=== PATIENT | male | born 1995 ===

== ENCOUNTER 2016-06-05 21:17 | Inpatient (IN) | payer MEDICAID ==
[2016-06-05 21:20] VITALS: BMI 38.4
[2016-06-05] MEDS ORDERED: Piperacillin/Tazobact 3.375 gm 100 ML IV STA (21:41)
--- NOTE | 2016-06-05 21:44 | ED PDOC ---
Arrival/HPI - General Chief Complaint: Dental Pain Time Seen by Provider: 06/05/16 21:35 Historian: Patient - History of Present Illness Narrative History of Present Illness (Text): 06/05/16 21:40 Vdial Vieyra is a 20 year old male, with a history of asthma and hypertension, presents to the emergency department complaining of worsening left sided facial swelling since today morning. Patient went to the dentist in the morning who performed a procedure on left upper molar and started patient on Augmentin. States he took the antibiotics at 2 pm but reports that symptoms are worsening. Denies any fever, chills, headache, dizziness, pain to the area, nausea, vomiting, diarrhea, or any other complaints at this time Time/Duration: Other (since today morning) Symptom Onset: Gradual Symptom Course: Worsening Severity Level: Moderate Activities at Onset: Light Context: Home Past Medical History - Provider Review Nursing Documentation Reviewed: Yes - Infectious Disease Hx of Infectious Diseases: None - Tetanus Immunization Tetanus Immunization: Unknown - Cardiac Hx Hypertension: Yes - Pulmonary Hx Respiratory Disorders: Yes Hx Asthma: Yes - Neurological Hx Neurological Disorder: No - HEENT Hx HEENT Disorder: No - Renal Hx Renal Disorder: No - Endocrine/Metabolic Hx Endocrine Disorders: No - Hematological/Oncological Hx Blood Disorders: No - Integumentary Hx Dermatological Disorder: No - Musculoskeletal/Rheumatological Hx Musculoskeletal Disorders: No - Gastrointestinal Hx Gastrointestinal Disorders: No - Genitourinary/Gynecological Hx Genitourinary Disorders: No - Psychiatric Hx Psychophysiologic Disorder: No Hx Substance Use: No - Past Surgical History Past Surgical History: No Previous - Anesthesia Hx Anesthesia: No - Suicidal Assessment Feels Threatened In Home Enviroment: No Family/Social History - Physician Review Nursing Documentation Reviewed: Yes Family/Social History: No Known Family HX Smoking Status: Never Smoked Hx Alcohol Use: No Hx Substance Use: No Allergies/Home Meds Allergies/Adverse Reactions: Allergies No Known Allergies Allergy (Verified 01/05/16 10:57) Home Medications: Home Meds Medication Instructions Recorded Confirmed No Known Home Med 06/06/16 06/06/16 Review of Systems - Physician Review All systems were reviewed & negative as marked: Yes - Review of Systems Constitutional: Normal. absent: Fatigue, Fevers ENT: Other (left facial swelling) Respiratory: Normal. absent: SOB, Cough Cardiovascular: Normal Gastrointestinal: Normal. absent: Abdominal Pain, Diarrhea, Nausea, Vomiting Neurological: Normal. absent: Headache, Dizziness Psychiatric: Normal Physical Exam Vital Signs Reviewed: Yes Vital Signs Temp Pulse Resp BP Pulse Ox 06/06/16 00:42 98.6 F 96 H 18 157/87 H 99 06/05/16 21:30 98.5 F 90 14 168/113 H 99 Temperature: Afebrile Blood Pressure: Hypertensive Pulse: Regular Respiratory Rate: Normal Appearance: Positive for: Well-Appearing, Non-Toxic, Comfortable Pain Distress: None Mental Status: Positive for: Alert and Oriented X 3 - Systems Exam Head: Present: Atraumatic, Normocephalic, Swelling (left infraorbital and left maxilla swelling with erythema ). No: Ecchymosis Pupils: Present: PERRL Extroacular Muscles: Present: EOMI Conjunctiva: Present: Normal Respiratory/Chest: Present: Clear to Auscultation, Good Air Exchange. No: Respiratory Distress, Accessory Muscle Use Cardiovascular: Present: Regular Rate and Rhythm, Normal S1, S2. No: Murmurs Abdomen: Present: Normal Bowel Sounds. No: Tenderness, Distention, Peritoneal Signs Upper Extremity: Present: Normal Inspection. No: Cyanosis, Edema Lower Extremity: Present: Normal Inspection. No: Edema Neurological: Present: GCS=15, CN II-XII Intact, Speech Normal Skin: Present: Warm, Dry, Normal Color. No: Rashes Psychiatric: Present: Alert, Oriented x 3, Normal Insight, Normal Concentration Medical Decision Making ED Course and Treatment: 06/05/16 21:47 Impression: A 20 year old male who presents to the ed with left facial swelling , worsening since today morning. Started on antibiotics by dentist today am. Plan: -- Labs -- Vancomycin -- Zosyn -- Blood culture Plan: 06/06/16 00:21 Patient with facial cellulitis and will require admission to the hospital for IV antibiotics administration. Case discussed with Dr. Hawikns and medical office clerk who agree with the plan to admit patient. Accepts patient under hospitalist service. - Lab Interpretations Lab Results: 06/05/16 21:52 06/05/16 21:52 Lab Results 06/05/16 21:52: WBC 11.2 H D, RBC 5.19, Hgb 15.5, Hct 43.1, MCV 83.0, MCH 29.9, MCHC 36.0, RDW 13.2, Plt Count 237, MPV 10.7, Sodium 138, Potassium 3.6, Chloride 99, Carbon Dioxide 26, Anion Gap 17, BUN 8, Creatinine 0.7, Est GFR ( Amer) > 60, Est GFR (Non-Af Amer) > 60, Random Glucose 125 H, Calcium 9.6, Total Bilirubin 1.1, AST 18, ALT 34, Alkaline Phosphatase 111, Total Protein 8.3, Albumin 4.6, Globulin 3.8, Albumin/Globulin Ratio 1.2 I have reviewed the lab results: Yes - Medication Orders Current Medication Orders: Acetaminophen (Tylenol 325mg Tab) 650 mg PO Q6H PRN PRN Reason: Pain Clindamycin Phosphate 600 mg/ (Sodium Chloride) 54 mls @ 102 mls/hr IVPB Q8 LIGIA PRN Reason: Protocol Ibuprofen (Motrin Tab) 600 mg PO Q6H PRN PRN Reason: Pain, moderate (4-7) Last Admin: 06/06/16 02:04 Dose: 600 MG MAR Pain/Vitals Document 06/06/16 02:04 [email or web address] (Rec: 06/06/16 02:05 [id number]) Pain Reassessment Is This A Pain ReAssessment? No Presence of Pain Presence of Pain Yes Location Left, Right or Bilateral Left Pain Location Body Site Face Description Constant Intensity 5 Oxycodone/Acetaminophen (Percocet 5/325 Mg Tab) 1 tab PO Q6H PRN PRN Reason: Pain, severe (8-10) Stop: 06/09/16 00:41 Pantoprazole Sodium (Protonix Ec Tab) 40 mg PO ACB LIGIA Discontinued Medications Piperacillin Sod/Tazobactam Sod (Zosyn 3.375 In Ns 100ml) 100 mls @ 200 mls/hr IV STAT STA PRN Reason: Protocol Stop: 06/05/16 22:10 Last Admin: 06/05/16 22:00 Dose: 200 MLS/HR eMAR Start Stop Document 06/05/16 22:00 [email or web address] (Rec: 06/06/16 00:25 [email or web address] [facility] ) Intravenous Solution Start Date 06/05/16 Start Time 22:00 End Date 06/05/16 Vancomycin HCl (Vancomycin 1gm) 250 mls @ 133.333 mls/hr IVPB STAT STA PRN Reason: Protocol Stop: 06/05/16 23:33 Last Admin: 06/05/16 23:38 Dose: 133.333 MLS/HR eMAR Start Stop Document 06/05/16 23:38 JOHN (Rec: 06/05/16 23:39 JOHN [facility] [id number]) Intravenous Solution Start Date 06/05/16 Start Time 23:39 - Scribe Statement The provider has reviewed the documentation as recorded by the Fco Mckinney Provider Attestation: All medical record entries made by the Fco were at my direction and personally dictated by me. I have reviewed the chart and agree that the record accurately reflects my personal performance of the history, physical exam, medical decision making, and the department course for this patient. I have also personally directed, reviewed, and agree with the discharge instructions and disposition. Disposition/Present on Arrival - Present on Arrival Any Indicators Present on Arrival: No History of DVT/PE: No History of Uncontrolled Diabetes: No Urinary Catheter: No History of Decub. Ulcer: No History Surgical Site Infection Following: None - Disposition Have Diagnosis and Disposition been Completed?: Yes Diagnosis: Cellulitis and abscess of face Disposition: HOSPITALIZED Disposition Time: 00:20 Patient Plan: Admission Patient Problems: Current Active Problems Problem Status Diagnosed Cellulitis and abscess of face Acute Condition: STABLE
[2016-06-05 22:12] LABS: ALB/GLOB RATIO 1.2 (1.1-1.8); ALKALINE PHOSPHATASE 111 U/L (38-133); ALT/SGPT 34 U/L (7-56); AST/SGOT 18 U/L (15-59); BILIRUBIN,TOTAL 1.1 mg/dL (0.2-1.3); BLOOD UREA NITROGEN 8 mg/dL (7-21); CALCIUM 9.6 mg/dL (8.4-10.5); CARBON DIOXIDE 26 mmol/L (21-33); CHLORIDE 99 mmol/L (98-107); GFR AFRICAN-AMERICAN > 60; GLUCOSE,RANDOM 125 mg/dL (70-110); POTASSIUM 3.6 mmol/L (3.6-5.0); SODIUM 138 mmol/L (132-148); TOTAL PROTEIN 8.3 g/dL (5.8-8.3)
[2016-06-05 22:13] LABS: HEMATOCRIT 43.1 % (42.0-52.0); MEAN CORPUSCULAR HEMOGLOBIN 29.9 pg (25.0-35.0); MEAN PLATELET VOLUME 10.7 fl (7.0-11.0); RED CELL DISTRIBUTION WIDTH 13.2 % (11.5-14.5); WHITE BLOOD COUNT 11.2 10^3/ul (4.5-11.0)
[2016-06-05] MEDS: Vancomycin 1gm in NS 250ml 250 ML IVPB STA (23:38)
[2016-06-06] MEDS ORDERED: Oxycodone/Acetaminophen 5/325 mg Tab PO PRN (00:40)
--- NOTE | 2016-06-06 00:50 | CP.PCM.HP ---
<Bridgette Rodriguez - Last Filed: 06/06/16 01:37> History of Present Illness - History of Present Illness History of Present Illness: This is a 20Y M with PMH of asthma and hypertension admitted for facial swelling x 1 day. He reports that he broke his L upper tooth several weeks ago. He had a dental procedure this morning. They drilled a hole where the tooth was. After the procedure, the patient was given Augmentin and Percocet 5/325mg. The patient said throughout the day, the pain was getting worse. He also noticed increased swelling, fullness and redness of the L side of his face. He denies any drainage, fever, chills, vision changes, n/v/d. He took some of the antibiotics today without any relief and decided to come to the hospital. In the ED, patient was found to have leukocytosis. PMH: Asthma, HTN PSH: Denies Home meds: None All: NKDA SH: Denies tobacco, EtOH or drug use FH: Denies Present on Admission - Present on Admission Any Indicators Present on Admission: No Review of Systems - Review of Systems Review of Systems: As per HPI Past Patient History - Infectious Disease Hx of Infectious Diseases: None - Tetanus Immunizations Tetanus Immunization: Unknown - Past Social History Smoking Status: Never Smoked - CARDIAC Hx Hypertension: Yes - PULMONARY Hx Respiratory Disorders: Yes Hx Asthma: Yes - NEUROLOGICAL Hx Neurological Disorder: No - HEENT Hx HEENT Problems: No - RENAL Hx Chronic Kidney Disease: No - ENDOCRINE/METABOLIC Hx Endocrine Disorders: No - HEMATOLOGICAL/ONCOLOGICAL Hx Blood Disorders: No - INTEGUMENTARY Hx Dermatological Problems: No - MUSCULOSKELETAL/RHEUMATOLOGICAL Hx Musculoskeletal Disorders: No - GASTROINTESTINAL Hx Gastrointestinal Disorders: No - GENITOURINARY/GYNECOLOGICAL Hx Genitourinary Disorders: No - PSYCHIATRIC Hx Psychophysiologic Disorder: No Hx Substance Use: No - SURGICAL HISTORY Hx Surgeries: No - ANESTHESIA Hx Anesthesia: No Meds Allergies/Adverse Reactions: Allergies Allergy/AdvReac Type Severity Reaction Status Date / Time No Known Allergies Allergy Verified 01/05/16 10:57 Physical Exam - Constitutional Appears: No Acute Distress - Head Exam Head Exam: ATRAUMATIC, NORMAL INSPECTION, NORMOCEPHALIC - Eye Exam Eye Exam: Normal appearance Pupil Exam: NORMAL ACCOMODATION - ENT Exam ENT Exam: Mucous Membranes Moist Additional comments: Redness and swelling on L side of face extending to the lower lid No abscess, drainage or bleeding seen within oropharynx - Neck Exam Neck exam: Positive for: Full Rom, Normal Inspection. Negative for: Thyromegaly - Respiratory Exam Respiratory Exam: Clear to Auscultation Bilateral, NORMAL BREATHING PATTERN. absent: Rales, Rhonchi, Wheezes - Cardiovascular Exam Cardiovascular Exam: REGULAR RHYTHM, +S1, +S2. absent: Gallop, Rubs, Systolic Murmur - GI/Abdominal Exam GI & Abdominal Exam: Normal Bowel Sounds, Soft. absent: Mass, Rebound, Rigid, Tenderness - Extremities Exam Extremities exam: Positive for: normal inspection. Negative for: calf tenderness, pedal edema - Neurological Exam Neurological exam: Alert, CN II-XII Intact, Oriented x3 - Psychiatric Exam Psychiatric exam: Normal Affect, Normal Mood - Skin Skin Exam: Dry, Normal Color, Rash (dry scaling rash on ankles bilaterally ), Warm Results - Vital Signs Recent Vital Signs: Last Vital Signs Temp 98.6 F 06/06/16 00:42 Pulse 96 H 06/06/16 00:42 Resp 18 06/06/16 00:42 BP 157/87 H 06/06/16 00:42 Pulse Ox 99 06/06/16 00:42 - Labs Result Diagrams: 06/05/16 21:52 06/05/16 21:52 Labs: Laboratory Results - last 24 hr 06/05/16 21:52 WBC 11.2 H D RBC 5.19 Hgb 15.5 Hct 43.1 MCV 83.0 MCH 29.9 MCHC 36.0 RDW 13.2 Plt Count 237 MPV 10.7 Sodium 138 Potassium 3.6 Chloride 99 Carbon Dioxide 26 Anion Gap 17 BUN 8 Creatinine 0.7 Est GFR ( Amer) > 60 Est GFR (Non-Af Amer) > 60 Random Glucose 125 H Calcium 9.6 Total Bilirubin 1.1 AST 18 ALT 34 Alkaline Phosphatase 111 Total Protein 8.3 Albumin 4.6 Globulin 3.8 Albumin/Globulin Ratio 1.2 Assessment & Plan - Assessment and Plan (Free Text) Assessment: This is a 20Y M with PMH of HTN and asthma admitted for facial cellulitis s/p dental procedure. Plan: 1. Facial cellulitis - Maxofacial CT to r/o abscess - Cleocin IV - Tylenol prn fever - Motrin prn mild pain, Percocet for severe pain - HOB elevated 45 degrees - Soft heart healthy diet 2. Hx of HTN - Pt not on BP meds at home - Continue to monitor vitals GI ppx: Pepcid DVT ppx: SCDs Case seen, reviewed and discussed with attending Waqar Rodriguez PGY1 - Date & Time Date: 06/06/16 Time: 00:55 <Shruthi RICHARDSON,Jason - Last Filed: 06/12/16 09:15> Results - Vital Signs Recent Vital Signs: Last Vital Signs Temp 98.6 F 06/08/16 16:00 Pulse 72 06/08/16 16:00 Resp 18 06/08/16 16:00 BP 152/84 H 06/08/16 16:00 Pulse Ox 100 06/08/16 16:00 - Labs Result Diagrams: 06/08/16 07:30 06/08/16 07:30 Attending/Attestation - Attestation I have personally seen and examined this patient.: Yes I have fully participated in the care of the patient.: Yes I have reviewed all pertinent clinical information: Yes Notes (Text): 06/12/16 09:14 -I agree with above H&P completed by the resident physician.
[2016-06-06] MEDS: Pantoprazole 40 mg EC Tab PO SCH (08:24)
--- NOTE | 2016-06-06 11:09 | CT ---
PROCEDURE: CT MAXILLOFACIAL BONES WITHOUT CONTRAST HISTORY: r/o abscess COMPARISON: None TECHNIQUE: Contiguous axial CT images of the maxillofacial bones were obtained. Coronal and sagittal reformats were generated. Radiation dose: Total exam DLP = 767.43 mGy-cm. This CT exam was performed using one or more of the following dose reduction techniques: Automated exposure control, adjustment of the mA and/or kV according to patient size, and/or use of iterative reconstruction technique. FINDINGS: NASAL BONES: The nasal bones are intact. ORBITS: There is moderate left periorbital soft tissue swelling. There is also left pre maxillary inflammatory soft tissue and left facial soft tissue swelling with subcutaneous fat stranding. There is reactive thickening of the left platysma and chopper feeder. There is no drainable abscess or fluid collection. PARANASAL SINUSES/ MASTOIDS: There is moderate polypoid mucosal thickening in the left maxillary sinus. The remaining paranasal sinuses are clear. MAXILLA: There is no evidence of bone erosion or aggressive osseous lesion. MANDIBLE/ TEMPOROMANDIBULAR JOINTS: Normal. SKULL BASE: Normal. TEMPORAL BONES: Middle ears and mastoid grossly unremarkable. OTHER FINDINGS: There is reactive enlargement of the left submandibular and parotid lymph nodes. IMPRESSION: 1. Findings are most compatible with left periorbital, premaxillary and facial cellulitis. No drainable abscess or fluid collection. Reactive inflammatory changes in the left platysma, masses tear and reactive left submandibular and parotid lymphadenopathy. 2. Moderate polypoid mucosal thickening in the left maxillary sinus which may represent acute and/ sinusitis. Clinical correlation is advised.
[2016-06-06 11:36] LABS: ADD MANUAL DIFF? NO
[2016-06-06 11:45] LABS: EOS % 0.2 % (1.5-5.0); GRAN # 5.97 (1.4-6.5); GRAN % 66.5 % (50.0-68.0); HEMATOCRIT 43.2 % (42.0-52.0); LYMPH # 2.2 (1.2-3.4); LYMPH % 24.4 % (22.0-35.0); MEAN CELL VOLUME 83.4 fL (80.0-105.0); MEAN CORPUSCULAR HEMOGLOBIN 29.7 pg (25.0-35.0); MEAN CORPUSCULAR HGB CONC 35.6 g/dl (31.0-37.0); MEAN PLATELET VOLUME 10.6 fl (7.0-11.0); MONO # 0.8 (0.1-0.6); MONO % 8.9 % (1.0-6.0); PLATELET COUNT 214 10^3/uL (120.0-450.0); RED CELL DISTRIBUTION WIDTH 13.3 % (11.5-14.5)
[2016-06-06 11:52] LABS: BLOOD UREA NITROGEN 6 mg/dL (7-21); CALCIUM 9.4 mg/dL (8.4-10.5); CARBON DIOXIDE 29 mmol/L (21-33); CHLORIDE 100 mmol/L (95-110); GFR AFRICAN-AMERICAN > 60; GLUCOSE,RANDOM 104 mg/dL (70-110); POTASSIUM 3.9 mmol/L (3.6-5.0); SODIUM 140 mmol/L (132-148)
--- NOTE | 2016-06-06 20:06 | CP.PCM.CON ---
History of Present Illness - History of Present Illness History of Present Illness: Infectious Disease Consultation: June 06, 2016 20 yo male with fracture of right upper tooth several weeks ago. Dentist had to drill area. He was given Augmentin and Percocet after procedure. He developed increasing pain, erythema, and fullness of the Left side of the face. He came to [facility] [place] for further evaluation. Started on Clindamycin so far. PMHx: Asthma, Hypertension PSHx: none given Allergies: NKDA Social Hx: No tobacco, EtOH, or illicit drug use Active Medications Acetaminophen (Tylenol 325mg Tab) 650 mg PO Q6H PRN PRN Reason: Pain Clindamycin Phosphate 600 mg/ (Sodium Chloride) 54 mls @ 102 mls/hr IVPB Q8 LIGIA PRN Reason: Protocol Last Admin: 06/06/16 14:46 Dose: 102 mls/hr Ibuprofen (Motrin Tab) 600 mg PO Q6H PRN PRN Reason: Pain, moderate (4-7) Last Admin: 06/06/16 12:39 Dose: 600 mg Oxycodone/Acetaminophen (Percocet 5/325 Mg Tab) 1 tab PO Q6H PRN PRN Reason: Pain, severe (8-10) Stop: 06/09/16 00:41 Last Admin: 06/06/16 08:24 Dose: 1 tab Pantoprazole Sodium (Protonix Ec Tab) 40 mg PO ACB [facility] Last Admin: 06/06/16 08:24 Dose: 40 mg Family Hx: none given ROS: No fevers, chills, nausea, vomiting, diarrhea, headaches, dizziness, chest pain , abdominal pain, melena, hematuria, hematemesis, hematochezia, depression, anxiety, vision loss, hearing loss. Past Patient History - Infectious Disease Hx of Infectious Diseases: None - Tetanus Immunizations Tetanus Immunization: Unknown - Past Social History Smoking Status: Never Smoked - CARDIAC Hx Hypertension: Yes - PULMONARY Hx Respiratory Disorders: Yes Hx Asthma: Yes - NEUROLOGICAL Hx Neurological Disorder: No - HEENT Hx HEENT Problems: No - RENAL Hx Chronic Kidney Disease: No - ENDOCRINE/METABOLIC Hx Endocrine Disorders: No - HEMATOLOGICAL/ONCOLOGICAL Hx Blood Disorders: No - INTEGUMENTARY Hx Dermatological Problems: No - MUSCULOSKELETAL/RHEUMATOLOGICAL Hx Musculoskeletal Disorders: No - GASTROINTESTINAL Hx Gastrointestinal Disorders: No - GENITOURINARY/GYNECOLOGICAL Hx Genitourinary Disorders: No - PSYCHIATRIC Hx Psychophysiologic Disorder: No Hx Substance Use: No - SURGICAL HISTORY Hx Surgeries: No - ANESTHESIA Hx Anesthesia: No Meds Allergies/Adverse Reactions: Allergies Allergy/AdvReac Type Severity Reaction Status Date / Time No Known Allergies Allergy Verified 01/05/16 10:57 - Medications Medications: Current Medications Acetaminophen (Tylenol 325mg Tab) 650 mg PO Q6H PRN PRN Reason: Pain Clindamycin Phosphate 600 mg/ (Sodium Chloride) 54 mls @ 102 mls/hr IVPB Q8 LIGIA PRN Reason: Protocol Last Admin: 06/06/16 14:46 Dose: 102 mls/hr Ibuprofen (Motrin Tab) 600 mg PO Q6H PRN PRN Reason: Pain, moderate (4-7) Last Admin: 06/06/16 12:39 Dose: 600 mg Oxycodone/Acetaminophen (Percocet 5/325 Mg Tab) 1 tab PO Q6H PRN PRN Reason: Pain, severe (8-10) Stop: 06/09/16 00:41 Last Admin: 06/06/16 08:24 Dose: 1 tab Pantoprazole Sodium (Protonix Ec Tab) 40 mg PO ACB LIGIA Last Admin: 06/06/16 08:24 Dose: 40 mg Physical Exam - Constitutional Appears: Non-toxic, No Acute Distress - Head Exam Additional comments: left facial swelling. - Eye Exam Eye Exam: EOMI, PERRL Pupil Exam: NORMAL ACCOMODATION, PERRL - ENT Exam ENT Exam: Mucous Membranes Moist Additional comments: Redness and swelling on L side of face extending to the lower lid - Neck Exam Neck exam: Positive for: Full Rom - Respiratory Exam Respiratory Exam: Clear to Auscultation Bilateral, NORMAL BREATHING PATTERN. absent: Rales, Rhonchi, Wheezes - Cardiovascular Exam Cardiovascular Exam: REGULAR RHYTHM, RRR, +S1, +S2 - GI/Abdominal Exam GI & Abdominal Exam: Normal Bowel Sounds, Soft. absent: Distended, Tenderness - Extremities Exam Extremities exam: Positive for: full ROM, normal inspection - Neurological Exam Neurological exam: Alert, CN II-XII Intact, Oriented x3 - Psychiatric Exam Psychiatric exam: Normal Affect, Normal Mood - Skin Skin Exam: Intact, Normal Color, Rash Results - Vital Signs Recent Vital Signs: Last Vital Signs Temp 98.7 F 06/06/16 16:00 Pulse 85 06/06/16 16:00 Resp 20 06/06/16 16:00 BP 144/90 06/06/16 16:00 Pulse Ox 98 06/06/16 16:00 - Labs Result Diagrams: 06/06/16 11:30 06/06/16 11:30 Labs: Laboratory Results - last 24 hr 06/06/16 11:30 WBC 9.0 RBC 5.18 Hgb 15.4 Hct 43.2 MCV 83.4 MCH 29.7 MCHC 35.6 RDW 13.3 Plt Count 214 MPV 10.6 Gran % 66.5 Lymph % (Auto) 24.4 Mitchell % (Auto) 8.9 H Eos % (Auto) 0.2 L Baso % (Auto) 0.0 Gran # 5.97 Lymph # 2.2 Mitchell # 0.8 H Eos # 0.0 Baso # 0.00 Sodium 140 Potassium 3.9 Chloride 100 Carbon Dioxide 29 Anion Gap 15 BUN 6 L Creatinine 0.7 Est GFR ( Amer) > 60 Est GFR (Non-Af Amer) > 60 Random Glucose 104 Calcium 9.4 Assessment & Plan - Assessment and Plan (Free Text) Assessment: 20 yo male with left facial cellulitis and possible abscess. Awaiting CT scan to rule out abscesses. Started on Clindamycin for antibiotic coverage. Will add Rocephin to regimen as well. History of hypertension that appears to be untreated prior to this hospitalization. The patient with facial cellulitis after recent dental procedure for broken tooth. Supportive care. It does appear that the patient was improving with the IV Clindamycin as the patient states his facial swelling is significantly better in the few hours he has been in the hospital. Cultures pending... unlikely to have any growth in cultures. If continued improvement in facial swelling, may be able to consider oral antibiotics of Clindamycin for discharge. Thank you for allowing me to participate in the care of the patient, we will follow with you.
[2016-06-06] MEDS: Vancomycin 1gm in NS 250ml 250 ML IVPB STA (21:35)
[2016-06-07 08:05] LABS: ADD MANUAL DIFF? NO
[2016-06-07 08:11] LABS: BASO # 0.01 K/mm3 (0.0-2.0); BASO % 0.1 % (0.0-3.0); EOS % 0.4 % (1.5-5.0); GRAN # 5.27 (1.4-6.5); GRAN % 65.4 % (50.0-68.0); HEMATOCRIT 40.4 % (42.0-52.0); LYMPH # 2.1 (1.2-3.4); LYMPH % 26.2 % (22.0-35.0); MEAN CELL VOLUME 83.6 fL (80.0-105.0); MEAN CORPUSCULAR HGB CONC 34.7 g/dl (31.0-37.0); MEAN PLATELET VOLUME 10.4 fl (7.0-11.0); MONO # 0.6 (0.1-0.6); MONO % 7.9 % (1.0-6.0); PLATELET COUNT 212 10^3/uL (120.0-450.0); RED CELL DISTRIBUTION WIDTH 13.4 % (11.5-14.5); WHITE BLOOD COUNT 8.1 10^3/ul (4.5-11.0)
[2016-06-07 08:20] LABS: ALB/GLOB RATIO 1.1 (1.1-1.8); ALKALINE PHOSPHATASE 95 U/L (38-133); ALT/SGPT 36 U/L (7-56); AST/SGOT 24 U/L (15-59); BLOOD UREA NITROGEN 7 mg/dL (7-21); CALCIUM 9.2 mg/dL (8.4-10.5); CARBON DIOXIDE 28 mmol/L (21-33); CHLORIDE 102 mmol/L (98-107); GFR AFRICAN-AMERICAN > 60; GLUCOSE,RANDOM 98 mg/dL (70-110); POTASSIUM 4.1 mmol/L (3.6-5.0); SODIUM 141 mmol/L (132-148); TOTAL PROTEIN 7.6 g/dL (5.8-8.3)
[2016-06-07] MEDS: Pantoprazole 40 mg EC Tab PO SCH (08:30)
[2016-06-07] MEDS: cefTRIAXone 1 gm 100 ML IVPB SCH (09:39)
--- NOTE | 2016-06-07 16:04 | CP.PCM.PN ---
<Lisa Buckley - Last Filed: 06/07/16 16:15> Subjective - Date & Time of Evaluation Date of Evaluation: 06/07/16 Time of Evaluation: 07:50 - Subjective Subjective: Hospitalist progress note for Dr. Anil Deng Pt s/e at bedside this AM. NAEO. Tolerated liquid diet yesterday. Swelling and pain have improved. Denies fevers, chills, sweats, chest pain, sob, or any other symptoms. Objective - Vital Signs/Intake and Output Vital Signs (last 24 hours): Temp Pulse Resp BP Pulse Ox 98.1 F 79 19 132/81 95 06/07/16 06:00 06/07/16 06:00 06/07/16 06:00 06/07/16 06:00 06/07/16 06:00 Intake and Output: 06/07/16 06/07/16 06:59 18:59 Intake Total 540 Balance 540 - Medications Medications: Current Medications Acetaminophen (Tylenol 325mg Tab) 650 mg PO Q6H PRN PRN Reason: Pain Clindamycin Phosphate 600 mg/ (Sodium Chloride) 54 mls @ 102 mls/hr IVPB Q8 LIGIA PRN Reason: Protocol Last Admin: 06/07/16 15:00 Dose: 102 mls/hr Ceftriaxone Sodium (Rocephin 1 Gram Ivpb) 100 mls @ 100 mls/hr IVPB DAILY LIGIA PRN Reason: Protocol Last Admin: 06/07/16 09:39 Dose: 100 mls/hr Ibuprofen (Motrin Tab) 600 mg PO Q6H PRN PRN Reason: Pain, moderate (4-7) Last Admin: 06/06/16 12:39 Dose: 600 mg Oxycodone/Acetaminophen (Percocet 5/325 Mg Tab) 1 tab PO Q6H PRN PRN Reason: Pain, severe (8-10) Stop: 06/09/16 00:41 Last Admin: 06/06/16 08:24 Dose: 1 tab Pantoprazole Sodium (Protonix Ec Tab) 40 mg PO ACB REPLACED BY [facility] Last Admin: 06/07/16 08:30 Dose: 40 mg - Labs Labs: 06/07/16 07:00 06/07/16 07:00 - Constitutional Appears: Well, Non-toxic, No Acute Distress - Head Exam Head Exam: ATRAUMATIC, NORMOCEPHALIC - Eye Exam Eye Exam: Normal appearance. absent: Conjunctival injection, Scleral icterus Additional comments: soft tissue around left eye swollen - ENT Exam ENT Exam: Mucous Membranes Moist, Normal Oropharynx Additional comments: Area of inflammation and swelling with a small hematoma of the lateral gums around a broken tooth on the L superior jaw. No active drainage. Improved from yesterday. Left facial tissue swollen and erythematous in the cheek but improved from yesterday - Neck Exam Neck Exam: Normal Inspection. absent: Lymphadenopathy Additional comments: no swelling - Respiratory Exam Respiratory Exam: NORMAL BREATHING PATTERN. absent: Accessory Muscle Use, Respiratory Distress - Cardiovascular Exam Cardiovascular Exam: RRR - GI/Abdominal Exam GI & Abdominal Exam: Soft. absent: Distended, Tenderness - Extremities Exam Extremities Exam: absent: Calf Tenderness, Pedal Edema, Tenderness - Neurological Exam Neurological Exam: Alert, Awake, Oriented x3 - Psychiatric Exam Psychiatric exam: Normal Affect, Normal Mood - Skin Skin Exam: Dry, Intact, Warm Assessment and Plan - Assessment and Plan (Free Text) Assessment: This is a 20Y M with PMH of HTN and asthma admitted for facial cellulitis s/p dental drainage of abscess from an infected tooth in his right upper jaw 1. Facial cellulitis Maxofacial CT: Findings are most compatible with left periorbital, premaxillary and facial cellulitis. No drainable abscess or fluid collection. Reactive inflammatory changes in the left platysma, masses tear and reactive left submandibular and parotid lymphadenopathy. Moderate polypoid mucosal thickening in the left maxillary sinus which may represent acute and/ sinusitis. Clinical correlation is advised. Leukocytosis resolved Plan - ID consulted, Dr. Cuellar, appreciate recs - Cleocin and rocephin IV - Tylenol prn fever - Motrin prn for pain, D/C percocet - HOB elevated 45 degrees - Soft heart healthy diet -Attempted contact Dr. Wilcox, an oral-facial surgeon for recommendations, but she is unavailable for the next 10 days. 2. Hx of HTN - Pt not on BP meds at home - Mild HTN yesterday, resolved today - Continue to monitor vitals GI ppx: Pepcid DVT ppx: SCDs Dispo: will continue as inpatient admit on med surgery floor for IV antibiotics , will likely discharge tomorrow if continues to improve Pt seen and discussed with Dr. Sowmya Buckley, PGY-7 <Anil Deng B - Last Filed: 06/07/16 17:21> Objective - Vital Signs/Intake and Output Vital Signs (last 24 hours): Temp Pulse Resp BP Pulse Ox 99.0 F 67 26 H 125/70 97 06/07/16 16:00 06/07/16 16:00 06/07/16 16:00 06/07/16 16:00 06/07/16 16:00 Intake and Output: 06/07/16 06/07/16 06:59 18:59 Intake Total 540 Balance 540 - Medications Medications: Current Medications Acetaminophen (Tylenol 325mg Tab) 650 mg PO Q6H PRN PRN Reason: Pain Clindamycin Phosphate 600 mg/ (Sodium Chloride) 54 mls @ 102 mls/hr IVPB Q8 LIGIA PRN Reason: Protocol Last Admin: 06/07/16 15:00 Dose: 102 mls/hr Ceftriaxone Sodium (Rocephin 1 Gram Ivpb) 100 mls @ 100 mls/hr IVPB DAILY LIGIA PRN Reason: Protocol Last Admin: 06/07/16 09:39 Dose: 100 mls/hr Ibuprofen (Motrin Tab) 600 mg PO Q6H PRN PRN Reason: Pain, moderate (4-7) Last Admin: 06/06/16 12:39 Dose: 600 mg Pantoprazole Sodium (Protonix Ec Tab) 40 mg PO ACB LIGIA Last Admin: 06/07/16 08:30 Dose: 40 mg - Labs Labs: 06/07/16 07:00 06/07/16 07:00 Attending/Attestation - Attestation I have personally seen and examined this patient.: Yes I have fully participated in the care of the patient.: Yes I have reviewed all pertinent clinical information, including history, physical exam and plan: Yes Notes (Text): I have seen and examined patient at bedside. Agree with the above note with the following additions/ exceptions: Briefly this is 20 year old female with history of HTN, asthma, obesity who got admitted for facial cellulitis which originated from odontogenic infection. Maxillofacial CT did not reveal any abscess however cellulitis, LAP and left maxillary sinsusitis was noticed. Today , swelling has improved slightly. Pateint is able to tolerate liquid diet. Will advance diet as tolerated. Will like to keep the patient for another 24 hours for IV antibiotics. Advise patient to follow up with dentist and [facility] as an outpatient. Dr Anil Deng
--- NOTE | 2016-06-07 18:14 | CP.PCM.PN ---
Subjective - Date & Time of Evaluation Date of Evaluation: 06/07/16 Time of Evaluation: 16:30 - Subjective Subjective: Infectious Disease Follow Up: June 07, 2016 20 yo male with fracture of right upper tooth several weeks ago. Dentist had to drill area. He was given Augmentin and Percocet after procedure. He developed increasing pain, erythema, and fullness of the Left side of the face. He came to [facility] [place] for further evaluation. On Clindamycin and Rocephin so far. Appears to be improving. Patient states swelling has decreased dramatically. Objective - Vital Signs/Intake and Output Vital Signs (last 24 hours): Temp Pulse Resp BP Pulse Ox 99.0 F 67 26 H 125/70 97 06/07/16 16:00 06/07/16 16:00 06/07/16 16:00 06/07/16 16:00 06/07/16 16:00 Intake and Output: 06/07/16 06/07/16 06:59 18:59 Intake Total 540 Balance 540 - Medications Medications: Current Medications Acetaminophen (Tylenol 325mg Tab) 650 mg PO Q6H PRN PRN Reason: Pain Clindamycin Phosphate 600 mg/ (Sodium Chloride) 54 mls @ 102 mls/hr IVPB Q8 LIGIA PRN Reason: Protocol Last Admin: 06/07/16 15:00 Dose: 102 mls/hr Ceftriaxone Sodium (Rocephin 1 Gram Ivpb) 100 mls @ 100 mls/hr IVPB DAILY LIGIA PRN Reason: Protocol Last Admin: 06/07/16 09:39 Dose: 100 mls/hr Ibuprofen (Motrin Tab) 600 mg PO Q6H PRN PRN Reason: Pain, moderate (4-7) Last Admin: 06/06/16 12:39 Dose: 600 mg Pantoprazole Sodium (Protonix Ec Tab) 40 mg PO ACB LIGIA Last Admin: 06/07/16 08:30 Dose: 40 mg - Labs Labs: 06/07/16 07:00 06/07/16 07:00 - Constitutional Appears: Non-toxic, No Acute Distress - Head Exam Additional comments: left facial swelling. - Eye Exam Eye Exam: EOMI, PERRL Pupil Exam: NORMAL ACCOMODATION, PERRL - ENT Exam ENT Exam: Mucous Membranes Moist Additional comments: Redness and swelling on L side of face extending to the lower lid - Neck Exam Neck Exam: Full ROM - Respiratory Exam Respiratory Exam: Clear to Ausculation Bilateral, NORMAL BREATHING PATTERN. absent: Rales, Rhonchi, Wheezes - Cardiovascular Exam Cardiovascular Exam: REGULAR RHYTHM, RRR, +S1, +S2 - GI/Abdominal Exam GI & Abdominal Exam: Soft, Normal Bowel Sounds. absent: Distended, Tenderness - Extremities Exam Extremities Exam: Full ROM, Normal Inspection - Neurological Exam Neurological Exam: Alert, Awake, CN II-XII Intact, Oriented x3 - Psychiatric Exam Psychiatric exam: Normal Affect, Normal Mood - Skin Skin Exam: Intact, Normal Color, Rash Assessment and Plan - Assessment and Plan (Free Text) Assessment: 20 yo male with left facial cellulitis and possible abscess. Awaiting CT scan to rule out abscesses. Started on Clindamycin for antibiotic coverage. Will add Rocephin to regimen as well. History of hypertension that appears to be untreated prior to this hospitalization. The patient with facial cellulitis after recent dental procedure for broken tooth. Supportive care. It does appear that the patient was improving with the IV Clindamycin as the patient states his facial swelling is significantly better in the few hours he has been in the hospital. Cultures pending... unlikely to have any growth in cultures. Cultures at 24 hours are negative. If continued improvement in facial swelling, may be able to consider oral antibiotics of Clindamycin for discharge. Thank you for allowing me to participate in the care of the patient, we will follow with you.
[2016-06-08 07:49] LABS: ADD MANUAL DIFF? NO
[2016-06-08 07:53] LABS: BASO # 0.01 K/mm3 (0.0-2.0); BASO % 0.1 % (0.0-3.0); EOS # 0.1 (0.0-0.7); EOS % 0.9 % (1.5-5.0); GRAN # 4.08 (1.4-6.5); GRAN % 59.6 % (50.0-68.0); HEMATOCRIT 41.4 % (42.0-52.0); LYMPH # 2.2 (1.2-3.4); LYMPH % 31.8 % (22.0-35.0); MEAN CORPUSCULAR HGB CONC 34.5 g/dl (31.0-37.0); MEAN PLATELET VOLUME 10.2 fl (7.0-11.0); MONO # 0.5 (0.1-0.6); MONO % 7.6 % (1.0-6.0); PLATELET COUNT 229 10^3/uL (120.0-450.0); RED CELL DISTRIBUTION WIDTH 13.2 % (11.5-14.5); WHITE BLOOD COUNT 6.9 10^3/ul (4.5-11.0)
[2016-06-08 08:10] LABS: ALB/GLOB RATIO 1.1 (1.1-1.8); ALKALINE PHOSPHATASE 94 U/L (38-133); ALT/SGPT 45 U/L (7-56); AST/SGOT 26 U/L (15-59); BILIRUBIN,TOTAL 0.7 mg/dL (0.2-1.3); BLOOD UREA NITROGEN 10 mg/dL (7-21); CALCIUM 9.4 mg/dL (8.4-10.5); CARBON DIOXIDE 28 mmol/L (21-33); CHLORIDE 101 mmol/L (98-107); GFR AFRICAN-AMERICAN > 60; GLUCOSE,RANDOM 95 mg/dL (70-110); POTASSIUM 4.1 mmol/L (3.6-5.0); SODIUM 142 mmol/L (132-148); TOTAL PROTEIN 7.9 g/dL (5.8-8.3)
[2016-06-08] MEDS: Pantoprazole 40 mg EC Tab PO SCH (08:34)
[2016-06-08] MEDS: cefTRIAXone 1 gm 100 ML IVPB SCH (09:28)
--- NOTE | 2016-06-08 13:00 | CP.PCM.DIS ---
<Lisa Buckley - Last Filed: 06/08/16 15:51> Provider - Provider Date of Admission: 06/06/16 00:17 Attending physician: Anil Deng MD Primary care physician: Arlin Strickland MD Time Spent in preparation of Discharge (in minutes): 40 Diagnosis - Discharge Diagnosis (1) Dental abscess Status: Acute (2) Cellulitis and abscess of face Status: Acute Hospital Course - Lab Results Lab Results: Most Recent Lab Values WBC 6.9 10^3/ul (4.5-11.0) 06/08/16 07:30 RBC 4.93 10^6/uL (3.5-6.1) 06/08/16 07:30 Hgb 14.3 gm/dL (14.0-18.0) 06/08/16 07:30 Hct 41.4 % (42.0-52.0) L 06/08/16 07:30 MCV 84.0 fL (80.0-105.0) 06/08/16 07:30 MCH 29.0 pg (25.0-35.0) 06/08/16 07:30 MCHC 34.5 g/dl (31.0-37.0) 06/08/16 07:30 RDW 13.2 % (11.5-14.5) 06/08/16 07:30 Plt Count 229 10^3/uL (120.0-450.0) 06/08/16 07:30 MPV 10.2 fl (7.0-11.0) 06/08/16 07:30 Gran % 59.6 % (50.0-68.0) 06/08/16 07:30 Lymph % (Auto) 31.8 % (22.0-35.0) 06/08/16 07:30 Wake % (Auto) 7.6 % (1.0-6.0) H 06/08/16 07:30 Eos % (Auto) 0.9 % (1.5-5.0) L 06/08/16 07:30 Baso % (Auto) 0.1 % (0.0-3.0) 06/08/16 07:30 Gran # 4.08 (1.4-6.5) 06/08/16 07:30 Lymph # 2.2 (1.2-3.4) 06/08/16 07:30 Wake # 0.5 (0.1-0.6) 06/08/16 07:30 Eos # 0.1 (0.0-0.7) 06/08/16 07:30 Baso # 0.01 K/mm3 (0.0-2.0) 06/08/16 07:30 Sodium 142 mmol/L (132-148) 06/08/16 07:30 Potassium 4.1 mmol/L (3.6-5.0) 06/08/16 07:30 Chloride 101 mmol/L (98-107) 06/08/16 07:30 Carbon Dioxide 28 mmol/L (21-33) 06/08/16 07:30 Anion Gap 17 (10-20) 06/08/16 07:30 BUN 10 mg/dL (7-21) 06/08/16 07:30 Creatinine 0.9 mg/dL (0.5-1.4) 06/08/16 07:30 Est GFR ( Amer) > 60 06/08/16 07:30 Est GFR (Non-Af Amer) > 60 06/08/16 07:30 Random Glucose 95 mg/dL (70-110) 06/08/16 07:30 Calcium 9.4 mg/dL (8.4-10.5) 06/08/16 07:30 Total Bilirubin 0.7 mg/dL (0.2-1.3) 06/08/16 07:30 AST 26 U/L (15-59) 06/08/16 07:30 ALT 45 U/L (7-56) 06/08/16 07:30 Alkaline Phosphatase 94 U/L (38-133) 06/08/16 07:30 Total Protein 7.9 g/dL (5.8-8.3) 06/08/16 07:30 Albumin 4.2 g/dL (3.0-4.8) 06/08/16 07:30 Globulin 3.8 gm/dL 06/08/16 07:30 Albumin/Globulin Ratio 1.1 (1.1-1.8) 06/08/16 07:30 HIV 1&2 Ag/Ab, 4th Gen Nonreactive (Nonreactive) 06/07/16 07:00 - Hospital Course Hospital Course: A 20-year-old male with PMH of asthma and hypertension [place] [facility] [place] with facial swelling for one day. He broke his left upper tooth months ago.The day of admit, he noticed some facial swelling and went to the dentist for an I & D of a deep tooth abscess. His dentist prescribed Augmentin and Percocet after the procedure. After the procedure, he noticed some facial swelling, fullness and redness of the left side of the face that worsened by the end of the day and he came to the ED. Patient was admitted on 06/05 for left-sided facial cellulitis. A Maxillofacial CT showed left periorbital, premaxillary and facial cellulitis without a drainable abscess or fluid collection, as well as moderate polyploidy mucosal thickening in the left maxillary sinus. Infectious disease was consulted. He received IV Rocephin and Clindamycin and pain medication for 3 days. At day of discharge the facial redness has resolved, and he has minor swelling on the left side of the face. Denied pain, dysphagia, SOB, fevers, chills, headache, vision changes, or any other symptoms. Plan was made for discharge on PO Clindamycin for 14 days and close find up with his dentist and an oralfacial surgeon. Findings and plan was discussed with the patient and he understood and agreed to follow-up with his dentist, who will refer him to a oralfacial surgeon. He was cleared for discharge by Dr. Deng, Dr. Cuellar, and his dentist. Please see EMR for full report. Discharge Exam - Head Exam Head Exam: ATRAUMATIC, NORMOCEPHALIC - Eye Exam Eye Exam: Normal appearance. absent: Conjunctival injection, Scleral icterus - ENT Exam ENT Exam: Mucous Membranes Moist, Normal Oropharynx Additional comments: Area of inflammation and swelling with a small hematoma of the lateral gums around a broken tooth on the L superior jaw. Improved since yesterday. No active drainage. Improved from yesterday. Left facial tissue mildly swollen in the cheek but greatly improved from yesterday - Neck Exam Neck exam: Normal Inspection Additional comments: no lymphadenopathy, no tenderness, no swelling - Respiratory Exam Respiratory Exam: Clear to PA & Lateral, NORMAL BREATHING PATTERN, UNREMARKABLE. absent: Accessory Muscle Use - Cardiovascular Exam Cardiovascular Exam: REGULAR RHYTHM, +S1, +S2. absent: Diastolic murmur, Systolic Murmur - GI/Abdominal Exam GI & Abdominal Exam: Soft. absent: Distended, Tenderness - Extremities Exam Extremities exam: normal inspection, pedal pulses present Additional comments: No calf tendernes - Back Exam Back exam: NORMAL INSPECTION. absent: paraspinal tenderness, tenderness - Neurological Exam Neurological exam: Alert, Oriented x3 - Psychiatric Exam Psychiatric exam: Normal Affect, Normal Mood - Skin Skin Exam: Dry, Intact, Normal Color, Warm Discharge Plan - Discharge Medications Prescriptions: Clindamycin [Clindamycin HCl] 450 mg PO Q8 14 Days - Follow Up Plan Condition: STABLE Disposition: HOME/ ROUTINE Instructions: Clindamycin (By mouth), Dental Abscess (GEN), Cellulitis (DC), Cellulitis (GEN), Abscess (GEN) Additional Instructions: 1. Follow up with a primary care doctor or with the [facility] within a week 2. Follow up with your dentist within a week. Bring records of your hospital stay to that appointment 3. Follow up with an oral-facial surgeon. Follow up with your dentist for a referral 4. Take all your prescribed medications as directed. Do not skip a dose or quit early without contacting a physician or your dentist Return to the ED if your symptoms worsen or do not improve or you have neck swelling, difficulty breathing, fevers, or chills Referrals: Arlin Strickland MD [Primary Care Provider] - <Anil Deng - Last Filed: 06/08/16 17:29> Provider - Provider Date of Admission: 06/06/16 00:17 Attending physician: Anil Deng MD Primary care physician: Arlin Strickland MD Hospital Course - Lab Results Lab Results: Most Recent Lab Values WBC 6.9 10^3/ul (4.5-11.0) 06/08/16 07:30 RBC 4.93 10^6/uL (3.5-6.1) 06/08/16 07:30 Hgb 14.3 gm/dL (14.0-18.0) 06/08/16 07:30 Hct 41.4 % (42.0-52.0) L 06/08/16 07:30 MCV 84.0 fL (80.0-105.0) 06/08/16 07:30 MCH 29.0 pg (25.0-35.0) 06/08/16 07:30 MCHC 34.5 g/dl (31.0-37.0) 06/08/16 07:30 RDW 13.2 % (11.5-14.5) 06/08/16 07:30 Plt Count 229 10^3/uL (120.0-450.0) 06/08/16 07:30 MPV 10.2 fl (7.0-11.0) 06/08/16 07:30 Gran % 59.6 % (50.0-68.0) 06/08/16 07:30 Lymph % (Auto) 31.8 % (22.0-35.0) 06/08/16 07:30 Wake % (Auto) 7.6 % (1.0-6.0) H 06/08/16 07:30 Eos % (Auto) 0.9 % (1.5-5.0) L 06/08/16 07:30 Baso % (Auto) 0.1 % (0.0-3.0) 06/08/16 07:30 Gran # 4.08 (1.4-6.5) 06/08/16 07:30 Lymph # 2.2 (1.2-3.4) 06/08/16 07:30 Wake # 0.5 (0.1-0.6) 06/08/16 07:30 Eos # 0.1 (0.0-0.7) 06/08/16 07:30 Baso # 0.01 K/mm3 (0.0-2.0) 06/08/16 07:30 Sodium 142 mmol/L (132-148) 06/08/16 07:30 Potassium 4.1 mmol/L (3.6-5.0) 06/08/16 07:30 Chloride 101 mmol/L (98-107) 06/08/16 07:30 Carbon Dioxide 28 mmol/L (21-33) 06/08/16 07:30 Anion Gap 17 (10-20) 06/08/16 07:30 BUN 10 mg/dL (7-21) 06/08/16 07:30 Creatinine 0.9 mg/dL (0.5-1.4) 06/08/16 07:30 Est GFR ( Amer) > 60 06/08/16 07:30 Est GFR (Non-Af Amer) > 60 06/08/16 07:30 Random Glucose 95 mg/dL (70-110) 06/08/16 07:30 Calcium 9.4 mg/dL (8.4-10.5) 06/08/16 07:30 Total Bilirubin 0.7 mg/dL (0.2-1.3) 06/08/16 07:30 AST 26 U/L (15-59) 06/08/16 07:30 ALT 45 U/L (7-56) 06/08/16 07:30 Alkaline Phosphatase 94 U/L (38-133) 06/08/16 07:30 Total Protein 7.9 g/dL (5.8-8.3) 06/08/16 07:30 Albumin 4.2 g/dL (3.0-4.8) 06/08/16 07:30 Globulin 3.8 gm/dL 06/08/16 07:30 Albumin/Globulin Ratio 1.1 (1.1-1.8) 06/08/16 07:30 HIV 1&2 Ag/Ab, 4th Gen Nonreactive (Nonreactive) 06/07/16 07:00 Attending/Attestation - Attestation I have personally seen and examined this patient.: Yes I have fully participated in the care of the patient.: Yes I have reviewed all pertinent clinical information, including history, physical exam and plan: Yes Notes (Text): I have seen and examined patient at bedside. Agree with the above note with the following additions/ exceptions: Briefly this is 20 year old female with history of HTN, asthma, obesity who got admitted for facial cellulitis which originated from odontogenic infection. Maxillofacial CT did not reveal any abscess however cellulitis, Lymphadeopathy and left maxillary sinsusitis was noticed. Today, swelling has improved remarkably. Patient is able to tolerate finely chopped diet. Will advance diet as tolerated. Patient will be sent home on PO clindamycin. Advise patient to follow up with dentist and [facility] as an outpatient. Dr Anil Deng
[2016-06-08 17:04] VITALS: BP 152/84; PULSE 72; RESP 18; TEMP 98.6; O2SAT 100
--- NOTE | 2016-06-08 17:58 | CP.PCM.PN ---
Subjective - Date & Time of Evaluation Date of Evaluation: 06/08/16 Time of Evaluation: 16:45 - Subjective Subjective: Infectious Disease Follow Up: June 08, 2016 20 yo male with fracture of right upper tooth several weeks ago. Dentist had to drill area. He was given Augmentin and Percocet after procedure. He developed increasing pain, erythema, and fullness of the Left side of the face. [place] [facility] [place]. On Clindamycin and Rocephin so far. Appears to be improving. Patient states swelling has decreased dramatically. Mild facial swelling mostly of the left lower eyelid now. Minimal erythema. Objective - Vital Signs/Intake and Output Vital Signs (last 24 hours): Temp Pulse Resp BP Pulse Ox 98.6 F 72 18 152/84 H 100 06/08/16 16:00 06/08/16 16:00 06/08/16 16:00 06/08/16 16:00 06/08/16 16:00 Intake and Output: 06/08/16 06/08/16 06:59 18:59 Intake Total 540 660 Balance 540 660 - Labs Labs: 06/08/16 07:30 06/08/16 07:30 - Constitutional Appears: Non-toxic, No Acute Distress, Chronically Ill - Head Exam Head Exam: ATRAUMATIC Additional comments: left facial swelling - Eye Exam Eye Exam: EOMI, PERRL Pupil Exam: NORMAL ACCOMODATION, PERRL - ENT Exam ENT Exam: Mucous Membranes Moist Additional comments: Redness and swelling of the Left side of the face extending to the lower eyelid that is now mostly resolved. - Neck Exam Neck Exam: Full ROM, Normal Inspection - Respiratory Exam Respiratory Exam: Clear to Ausculation Bilateral, NORMAL BREATHING PATTERN. absent: Rales, Rhonchi, Wheezes - GI/Abdominal Exam GI & Abdominal Exam: Soft, Normal Bowel Sounds. absent: Distended, Tenderness - Extremities Exam Extremities Exam: Full ROM, Normal Inspection - Neurological Exam Neurological Exam: Alert, Awake, CN II-XII Intact, Oriented x3 - Psychiatric Exam Psychiatric exam: Normal Affect, Normal Mood - Skin Skin Exam: Intact, Normal Color Assessment and Plan - Assessment and Plan (Free Text) Assessment: 20 yo male with left facial cellulitis and possible abscess. Awaiting CT scan to rule out abscesses. Started on Clindamycin for antibiotic coverage. Will add Rocephin to regimen as well. History of hypertension that appears to be untreated prior to this hospitalization. The patient with facial cellulitis after recent dental procedure for broken tooth. Supportive care. It does appear that the patient was improving with the IV Clindamycin as the patient states his facial swelling is significantly better in the few hours he has been in the hospital. Cultures pending... unlikely to have any growth in cultures. Cultures at 24 hours are negative. If continued improvement in facial swelling, may be able to consider oral antibiotics of Clindamycin for discharge. Can use Clindamycin 450 mg q8hrs for additional 10-14 days. Thank you for allowing me to participate in the care of the patient, we will follow with you.
== END 2016-06-08 17:48 | disposition home or self-care (01) | DRG 278 ==
LOC: ED 21:17 → ERH 06-06 00:17 → 3RSO 06-06 01:37
PROVIDERS: ADMIT Hospitalist; ATTEND Hospitalist
DX: L02.01 Cutaneous abscess of face (principal); I10 Essential (primary) hypertension; L03.211 Cellulitis of face; K04.7 Periapical abscess without sinus; J45.909 Unspecified asthma, uncomplicated; R40.2412 Glasgow coma scale score 13-15, at arrival to emergency department; J32.0 Chronic maxillary sinusitis; D72.829 Elevated white blood cell count, unspecified

== ENCOUNTER 2016-06-13 17:21 | Emergency (ER) | payer MEDICAID ==
[2016-06-13 17:22] VITALS: BMI 38.4
[2016-06-13 17:35] VITALS: PULSE 71; RESP 16; TEMP 98.3; O2SAT 98
--- NOTE | 2016-06-13 17:51 | ED PDOC ---
Arrival/HPI - General Time Seen by Provider: 06/13/16 17:29 Historian: Patient - History of Present Illness Narrative History of Present Illness (Text): 06/13/16 17:35 This 20 yo male presents to this ED c/o left facial pain x 4 days. Patient stated he was hospitalized for facial cellulitis x 1 week ago after a dental procedure. Patient is currently taking Clindamycin 300 mg cap , TID. Patient admits nasal congestion. Patient denies earache, MÉNDEZ, diplopia, dysphagia, weakness, paresthesias, rash, sick contact, or recent travel. Time/Duration: Other (4 days) Context: Home Past Medical History - Provider Review Nursing Documentation Reviewed: Yes - Infectious Disease Hx of Infectious Diseases: None - Tetanus Immunization Tetanus Immunization: Unknown - Cardiac Hx Hypertension: Yes - Pulmonary Hx Respiratory Disorders: Yes Hx Asthma: Yes - Neurological Hx Neurological Disorder: No - HEENT Hx HEENT Disorder: No - Renal Hx Renal Disorder: No - Endocrine/Metabolic Hx Endocrine Disorders: No - Hematological/Oncological Hx Blood Disorders: No - Integumentary Hx Dermatological Disorder: No - Musculoskeletal/Rheumatological Hx Musculoskeletal Disorders: No - Gastrointestinal Hx Gastrointestinal Disorders: No - Genitourinary/Gynecological Hx Genitourinary Disorders: No - Psychiatric Hx Psychophysiologic Disorder: No Hx Substance Use: No - Past Surgical History Past Surgical History: No Previous - Anesthesia Hx Anesthesia: No - Suicidal Assessment Feels Threatened In Home Enviroment: No Family/Social History - Physician Review Nursing Documentation Reviewed: Yes Family/Social History: No Known Family HX Smoking Status: Never Smoked Hx Alcohol Use: No Hx Substance Use: No Allergies/Home Meds Allergies/Adverse Reactions: Allergies No Known Allergies Allergy (Verified 06/13/16 17:35) Review of Systems - Review of Systems Constitutional: Normal. absent: Fatigue, Weight Change, Fevers Eyes: Normal ENT: Rhinorrhea Respiratory: Normal Cardiovascular: Normal Gastrointestinal: Normal Genitourinary Male: Normal Musculoskeletal: Other (Left facial pain) Skin: Normal Neurological: Normal Endocrine: Normal Hemo/Lymphatic: Normal Psychiatric: Normal Physical Exam Vital Signs Temp Pulse Resp BP Pulse Ox 06/13/16 18:21 16 98 06/13/16 17:35 98.3 F 71 16 98 06/13/16 17:33 98.3 F 71 16 146/82 98 Temperature: Afebrile Blood Pressure: Normal Pulse: Regular Respiratory Rate: Normal Appearance: Positive for: Well-Appearing, Non-Toxic, Comfortable Pain Distress: None Mental Status: Positive for: Alert and Oriented X 3 - Systems Exam Head: Present: Atraumatic, Normocephalic, Other (No facial cellulitis. No facial skin lesion or rash. No swelling. No ecchymosis. No salivary gland tenderness). No: Tenderness, Swelling, Ecchymosis, Abrasion Pupils: Present: PERRL Extroacular Muscles: Present: EOMI. No: Entrapment Conjunctiva: Present: Normal Ears: Present: Normal, NORMAL TM, Normal Canal. No: Erythema, TM Bulging, Fluid , TM Perf Mouth: Present: Moist Mucous Membranes, Normal Lips, Normal Tounge, Normal Teeth , Other (No oral mucosa lesion or infllamation. ). No: Drooling Pharnyx: Present: Normal. No: ERYTHEMA, EXUDATE, TONSILS ENLARGED, Peritonsilar Swelling, Uvular Deviation, Muffled/Hoarse Voice Nose (External): Present: Atraumatic Nose (Internal): Present: Rhinorrhea. No: Engorged, Edematous, Boggy, Purulent Mucous, Septal Hematoma, Epistaxis Neck: Present: Normal Range of Motion Respiratory/Chest: Present: Clear to Auscultation, Good Air Exchange. No: Respiratory Distress, Accessory Muscle Use Cardiovascular: Present: Regular Rate and Rhythm, Normal S1, S2. No: Murmurs Abdomen: Present: Normal Bowel Sounds. No: Tenderness, Distention, Peritoneal Signs Back: Present: Normal Inspection. No: CVA Tenderness Upper Extremity: Present: Normal Inspection. No: Cyanosis, Edema Lower Extremity: Present: Normal Inspection. No: Edema Neurological: Present: GCS=15, CN II-XII Intact, Speech Normal Skin: Present: Warm, Dry, Normal Color. No: Rashes Psychiatric: Present: Alert, Oriented x 3 Medical Decision Making ED Course and Treatment: 06/13/16 18:11 Re-evaluation. Patient feels better. Discussed results and plan with patient who expresses understanding. All questions answered and there is agreement with the plan to discharge home with instructions. Patient stable for discharge. Return if symptoms persist or worsen. Patient came c/o left facial pain. Patient has been taking ABX for facial cellulitis. Physical exam was unremarkable. No facial erythema, swelling, or skin lesion. Oral mucosa was normal. No dental caries, or gum swelling. No dental abscess. Patient was reassured no facial cellulitis was found at this ED visit. Patient was recommended to see his PMD in 1-2 days, and to return ED if symptom worse, facial erythema, or skin lesion, or difficulty swallowing, or oral/dental lesion at any time. He was also recommended to continue with ABX. Re-evaluation Time: 18:11 Reassessment Condition: Re-examined, Improved - Medication Orders Current Medication Orders: Discontinued Medications Ibuprofen (Motrin Tab) 600 mg PO STAT STA Stop: 06/13/16 18:08 Last Admin: 06/13/16 18:20 Dose: 600 MG MAR Pain/Vitals Document 06/13/16 18:20 [email or web address] (Rec: 06/13/16 18:21 [email or web address] [facility]- TRACK2) Pain Reassessment Is This A Pain ReAssessment? No Sleep Is patient sleeping during reassessment? No Presence of Pain Presence of Pain Yes Pain Scale Used Pain Scale Used Numeric Location Left, Right or Bilateral Left Pain Location Body Site Face Intensity 5 Scale Used Numeric Pain Behavior Facial Grimacing Aggravating Factors Changing Position Aggravating Factors Changing Position Prednisone (Prednisone Tab) 60 mg PO STAT ONE Stop: 06/13/16 18:14 Last Admin: 06/13/16 18:21 Dose: 60 MG Disposition/Present on Arrival - Present on Arrival Any Indicators Present on Arrival: No History of DVT/PE: No History of Uncontrolled Diabetes: No Urinary Catheter: No History Surgical Site Infection Following: None - Disposition Have Diagnosis and Disposition been Completed?: Yes Diagnosis: Facial pain Disposition: HOME/ ROUTINE Disposition Time: 18:11 Patient Plan: Discharge Condition: GOOD Discharge Instructions (ExitCare): Toothache (ED) Additional Instructions: Call private doctor for follow up visit in 1-2 days. Continue taking Clindamycin as instructed by your doctor. Call private dentist for revaluation. Take medication as instructed. Return to emergency if symptoms worsen at any time. Prescriptions: Prednisone [Deltasone] 60 mg PO DAILY #12 tablet Fluticasone Nasal [Flonase] 1 actuation NS BID #120 spr traMADol/Acetaminophen [Ultracet 325 MG-37.5 MG] 1 tab PO Q6H PRN #15 tab PRN Reason: Pain, Severe (8-10) Referrals: Osman Bates, [Staff Provider] - Follow up with primary
[2016-06-13 18:22] VITALS: BP 146/82
== END 2016-06-13 18:22 | disposition home or self-care (01) ==
LOC: ED 17:21
DX: K08.89 Other specified disorders of teeth and supporting structures (principal)

== ENCOUNTER 2017-03-15 07:30 | Emergency (ER) | payer MEDICAID, OTHER ==
[2017-03-15 07:36] VITALS: BMI 36.9
[2017-03-15 07:52] VITALS: RESP 18
--- NOTE | 2017-03-15 08:06 | ED PDOC ---
Arrival/HPI - General Time Seen by Provider: 03/15/17 07:52 Historian: Patient - History of Present Illness Narrative History of Present Illness (Text): 03/15/17 08:05 A 21 year old male, whose past medical history includes asthma, presents to the emergency department complaining of right sided chest discomfort since 04:00 this morning. Patient notes a dry cough. He reports recently having cold like symptoms, which have resolved. Patient denies any fever, chills, nausea, vomiting, abdominal pain, shortness of breath or any other complaints. Time/Duration: Other (04:00 this morning) Symptom Course: Unchanged Quality: Other Context: Home Past Medical History - Provider Review Nursing Documentation Reviewed: Yes - Infectious Disease Hx of Infectious Diseases: None - Tetanus Immunization Tetanus Immunization: Unknown - Cardiac Hx Hypertension: Yes - Pulmonary Hx Respiratory Disorders: Yes Hx Asthma: Yes - Neurological Hx Neurological Disorder: No - HEENT Hx HEENT Disorder: No - Renal Hx Renal Disorder: No - Endocrine/Metabolic Hx Endocrine Disorders: No - Hematological/Oncological Hx Blood Disorders: No - Integumentary Hx Dermatological Disorder: No - Musculoskeletal/Rheumatological Hx Musculoskeletal Disorders: No - Gastrointestinal Hx Gastrointestinal Disorders: No - Genitourinary/Gynecological Hx Genitourinary Disorders: No - Psychiatric Hx Psychophysiologic Disorder: No Hx Substance Use: No - Past Surgical History Past Surgical History: No Previous - Anesthesia Hx Anesthesia: No - Suicidal Assessment Feels Threatened In Home Enviroment: No Family/Social History - Physician Review Nursing Documentation Reviewed: Yes Family/Social History: No Known Family HX Smoking Status: Never Smoked Hx Alcohol Use: No Hx Substance Use: No Allergies/Home Meds Allergies/Adverse Reactions: Allergies No Known Allergies Allergy (Verified 03/15/17 07:35) Home Medications: Home Meds Medication Instructions Recorded Confirmed No Known Home Med 03/15/17 03/15/17 Review of Systems - Physician Review All systems were reviewed & negative as marked: Yes - Review of Systems Constitutional: absent: Fevers, Night Sweats Respiratory: Cough. absent: SOB, Sputum Cardiovascular: Chest Pain (right sided) Gastrointestinal: absent: Abdominal Pain, Nausea, Vomiting Physical Exam Vital Signs Temp Pulse Resp BP Pulse Ox 03/15/17 11:43 97.8 F 67 18 128/80 97 03/15/17 07:52 97.9 F 82 18 147/94 H 96 Temperature: Afebrile Blood Pressure: Hypertensive Pulse: Regular Respiratory Rate: Normal Appearance: Positive for: Well-Appearing, Non-Toxic, Comfortable Pain Distress: None Mental Status: Positive for: Alert and Oriented X 3 - Systems Exam Head: Present: Atraumatic, Normocephalic Pupils: Present: PERRL Extroacular Muscles: Present: EOMI Conjunctiva: Present: Normal Mouth: Present: Moist Mucous Membranes Neck: Present: Normal Range of Motion Respiratory/Chest: Present: Clear to Auscultation, Good Air Exchange. No: Respiratory Distress, Accessory Muscle Use, Tender to Palpation Cardiovascular: Present: Regular Rate and Rhythm, Normal S1, S2. No: Murmurs Abdomen: Present: Normal Bowel Sounds. No: Tenderness, Distention, Peritoneal Signs Back: Present: Normal Inspection Upper Extremity: Present: Normal Inspection. No: Cyanosis, Edema Lower Extremity: Present: Normal Inspection. No: Edema Neurological: Present: GCS=15, CN II-XII Intact, Speech Normal Skin: Present: Warm, Dry, Normal Color. No: Rashes Psychiatric: Present: Alert, Oriented x 3, Normal Insight, Normal Concentration Medical Decision Making ED Course and Treatment: 03/15/17 08:05 Impression: A 21 year old male with right sided chest discomfort. Patient notes dry cough but denies any other complaints. Plan: -- Chest xray -- EKG -- Labs -- Reassess and disposition Progress Notes: EKG shows NSR at [address]/T wave changes. Interpreted by me. 03/15/17 11:24 Chest xray read and interpreted by me, which showed no active disease. 03/15/17 11:35 On re-evaluation, patient feels better and is in no acute distress. I have discussed the results and plan with the patient, who expresses understanding. Patient in agreement with plan to be discharged home. Patient is stable for discharge. Patient was instructed to follow up with physician or return if symptoms worsen or new concerning symptoms arise. - Lab Interpretations Lab Results: 03/15/17 08:50 03/15/17 08:50 Lab Results 03/15/17 10:35: D-Dimer, Quantitative < 200 03/15/17 08:50: Sodium 140, Potassium 4.1, Chloride 108 H, Carbon Dioxide 22, Anion Gap 15, BUN 8, Creatinine 0.6 L, Est GFR ( Amer) > 60, Est GFR (Non -Af Amer) > 60, Random Glucose 117 H, Calcium 9.0, Total Bilirubin 0.4, AST 24, ALT 32, Alkaline Phosphatase 81, Lactate Dehydrogenase 264 L, Total Creatine Kinase 78, Troponin I < 0.01, NT-Pro-B Natriuret Pep < 11.1, Total Protein 7.2, Albumin 4.2, Globulin 3.0, Albumin/Globulin Ratio 1.4 03/15/17 08:50: PT 11.7, INR 1.02, D-Dimer, Quantitative Cancelled 03/15/17 08:50: WBC 6.9, RBC 5.11, Hgb 15.1, Hct 43.5, MCV 85.1, MCH 29.5, MCHC 34.7, RDW 13.1, Plt Count 202, MPV 10.2, Gran % 60.5, Lymph % (Auto) 31.8, [place] % (Auto) 7.2 H, Eos % (Auto) 0.4 L, Baso % (Auto) 0.1, Gran # 4.18, Lymph # 2.2 , [place] # 0.5, Eos # 0.0, Baso # 0.01 I have reviewed the lab results: Yes - RAD Interpretation Radiology Orders: 03/15/17 08:11 CHEST TWO VIEWS (PA/LAT) [RAD] Stat - PA / CATHETERIZATION LABORATORY TECHNICIAN / Resident Statement MD/DO has reviewed & agrees with the documentation as recorded. - Scribe Statement The provider has reviewed the documentation as recorded by the Kielibjesus Justice Provider Scribe Attestation: All medical record entries made by the Scribe were at my direction and personally dictated by me. I have reviewed the chart and agree that the record accurately reflects my personal performance of the history, physical exam, medical decision making, and the department course for this patient. I have also personally directed, reviewed, and agree with the discharge instructions and disposition. Disposition/Present on Arrival - Present on Arrival Any Indicators Present on Arrival: No History of DVT/PE: No History of Uncontrolled Diabetes: No Urinary Catheter: No History Surgical Site Infection Following: None - Disposition Have Diagnosis and Disposition been Completed?: Yes Diagnosis: Atypical chest pain, Pleuritic chest pain Disposition: HOME/ ROUTINE Disposition Time: 11:35 Patient Plan: Discharge Condition: GOOD Discharge Instructions (ExitCare): Chest Pain (ED) Additional Instructions: Vidal- Sorry that you are having these pains - Motrin should be enough to help ease your pain. Follow up with your regular doctor next week, return to us if worse. All of your tests here today are normal. Best- Dr. Johnathan Park Referrals: Arlin Strickland MD [Primary Care Provider] - Follow up with primary Forms: WORK NOTE
[2017-03-15 09:08] LABS: BASO # 0.01 K/mm3 (0.0-2.0); BASO % 0.1 % (0.0-3.0); EOS % 0.4 % (1.5-5.0); GRAN # 4.18 (1.4-6.5); GRAN % 60.5 % (50.0-68.0); HEMOGLOBIN 15.1 g/dL (14.0-18.0); LYMPH # 2.2 (1.2-3.4); LYMPH % 31.8 % (22.0-35.0); MEAN CELL VOLUME 85.1 fl (80.0-105.0); MEAN CORPUSCULAR HEMOGLOBIN 29.5 pg (25.0-35.0); MEAN CORPUSCULAR HGB CONC 34.7 g/dl (31.0-37.0); MEAN PLATELET VOLUME 10.2 fl (7.0-11.0); MONO # 0.5 (0.1-0.6); MONO % 7.2 % (1.0-6.0); RBC 5.11 10^6/uL (3.5-6.1); RED CELL DISTRIBUTION WIDTH 13.1 % (11.5-14.5); WHITE BLOOD COUNT 6.9 10^3/ul (4.5-11.0)
[2017-03-15 09:21] LABS: INR 1.02 (0.93-1.08); PROTHROMBIN TIME 11.7 SECONDS (9.4-12.5)
[2017-03-15 09:30] LABS: ALB/GLOB RATIO 1.4 (1.1-1.8); ALBUMIN 4.2 g/dL (3.0-4.8); ALT/SGPT 32 U/L (7-56); AST/SGOT 24 U/L (17-59); BLOOD UREA NITROGEN 8 mg/dL (7-21); GFR AFRICAN-AMERICAN > 60; GFR NON-AFRICAN AMERICAN > 60
[2017-03-15 09:38] LABS: B-TYPE NATRIURETIC PEPTIDE < 11.1 pg/mL (0-450)
[2017-03-15 09:42] LABS: TROPONIN I < 0.01 ng/mL
[2017-03-15 11:44] VITALS: BP 128/80; PULSE 67; TEMP 97.8; O2SAT 97
--- NOTE | 2017-03-15 12:30 | RAD ---
HISTORY: COMPARISON: 02/06/2013 TECHNIQUE: Chest PA and lateral FINDINGS: LINES AND TUBES: None. LUNG AND PLEURA: The lungs are well inflated and clear. HEART AND MEDIASTINUM: The heart is not enlarged. The hilar and mediastinal contours are within normal limits. SKELETAL STRUCTURES: The bony structures are within normal limits for the patient's age. VISUALIZED UPPER ABDOMEN: Normal. OTHER FINDINGS: None. IMPRESSION: No active pulmonary disease.
--- NOTE | 2017-03-15 13:14 | CARD ---
APPROVED REPORT EKG Measurement Heart [id number] <Conclusion> Normal sinus rhythm Nonspecific ST and T wave abnormality
== END 2017-03-15 12:10 | disposition home or self-care (01) ==
LOC: ED 07:30
DX: R07.81 Pleurodynia (principal); I10 Essential (primary) hypertension

== ENCOUNTER 2017-05-09 07:57 | Emergency (ER) | payer MEDICAID, OTHER ==
[2017-05-09 07:58] VITALS: BMI 36.9
--- NOTE | 2017-05-09 08:19 | ED PDOC ---
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 PCP: NONE Time/Duration: > week (1.5) Symptom Onset: Gradual Symptom Course: Worsening Quality: Tightness, Cramping Severity Level: 8, Severe Activities at Onset: Other (worse with movement) Context: Other (changing positions) Past Medical History - Provider Review Nursing Documentation Reviewed: Yes - Travel History Have you recently traveled outside [place] w/in the past 3 mons?: No - Past History Past History: No Previous - Infectious Disease Hx of Infectious Diseases: None - Tetanus Immunization Tetanus Immunization: Unknown - Cardiac Hx Cardiac Disorders: No - Pulmonary Hx Respiratory Disorders: Yes Hx Asthma: Yes - Neurological Hx Neurological Disorder: No - HEENT Hx HEENT Disorder: No - Renal Hx Renal Disorder: No - Endocrine/Metabolic Hx Endocrine Disorders: No - Hematological/Oncological Hx Blood Disorders: No - Integumentary Hx Dermatological Disorder: No - Musculoskeletal/Rheumatological Hx Musculoskeletal Disorders: No - Gastrointestinal Hx Gastrointestinal Disorders: No - Genitourinary/Gynecological Hx Genitourinary Disorders: No - Psychiatric Hx Psychophysiologic Disorder: No Hx Substance Use: No - Past Surgical History Past Surgical History: No Previous - Anesthesia Hx Anesthesia: No - Suicidal Assessment Feels Threatened In Home Enviroment: No Family/Social History - Physician Review Nursing Documentation Reviewed: Yes Family/Social History: No Known Family HX Smoking Status: Never Smoked Hx Alcohol Use: No Hx Substance Use: No Hx Substance Use Treatment: No Allergies/Home Meds Allergies/Adverse Reactions: Allergies No Known Allergies Allergy (Verified 05/09/17 08:05) Review of Systems - Review of Systems Constitutional: Normal Eyes: Normal ENT: Normal Respiratory: Normal Cardiovascular: Normal Gastrointestinal: Normal Genitourinary Male: Normal Musculoskeletal: Back Pain Skin: Normal Neurological: Normal Endocrine: Normal Hemo/Lymphatic: Normal Psychiatric: Normal Physical Exam Vital Signs Reviewed: Yes Vital Signs Temp Pulse Resp BP Pulse Ox 05/09/17 07:59 98.7 F 70 16 138/84 98 Temperature: Afebrile Blood Pressure: Normal Pulse: Regular Respiratory Rate: Normal Appearance: Positive for: Well-Appearing, Uncomfortable, Other (resting in bed, alert/awake, cooperative, respond to questions appropriately; mild distress due to pain; GCS = 15, oriented x 3) Pain Distress: Mild (distress due to pain) Mental Status: Positive for: Alert and Oriented X 3 - Systems Exam Head: Present: Atraumatic, Normocephalic Pupils: Present: PERRL, Other (no nystagmus, no photophobia, sclera anicteric, visual field intact b/l) Extroacular Muscles: Present: EOMI Conjunctiva: Present: Normal Ears: Present: Normal Mouth: Present: Moist Mucous Membranes, Normal Lips, Normal Teeth Pharnyx: Present: Normal Nose (External): Present: Atraumatic Nose (Internal): Present: Normal Inspection Neck: Present: Normal Range of Motion, Trachea Midline, Other (no midline tenderness, no nuchal rigidity, no meningeal signs, no step off). No: MIDLINE TENDERNESS Respiratory/Chest: Present: Clear to Auscultation, Good Air Exchange Cardiovascular: Present: Regular Rate and Rhythm, Normal S1, S2. No: Murmurs Abdomen: Present: Normal Bowel Sounds, Other (well nourished/slightly obese male , no focal tenderness, no bruce's sign, no mcburney's point tenderness, no masses/rebound/guarding/rigidity). No: Tenderness Back: Present: Normal Inspection, Other (slight lower lumbar paralumbar tenderness; no midline tenderness, no step off, No SLR b/l, intact ROM). No: Midline Tenderness Upper Extremity: Present: Normal Inspection, NORMAL PULSES Lower Extremity: Present: Normal Inspection, NORMAL PULSES, Normal ROM, Neurovascularly Intact, Other (strength 5/5 grossly intact in all limbs, neurovasc intact b/l, reflex +2/2 b/l; pt is able to bear weight/stand, ambulate (but slowly)) Neurological: Present: GCS=15, CN II-XII Intact, Speech Normal Skin: Present: Warm, Normal Color Psychiatric: Present: Alert, Oriented x 3 Medical Decision Making ED Course and Treatment: 05/09/17 08:15 Impression: lower back pain, atrumatic i have consider all the differential diagnosis regarding pt's chief medical complaints/clinical findings, including but are not limited to: lower back pain A/P: lower back pain - xray - pain control - observe - supportive care 05/09/17 09:47 pt is comfortable, still in some lower back pain with movements pt denied any numbness/tingling, no weakness pt is able to stand and walk pt is made aware of his medical results pt is instructed on proper lifting techniques pt will f/u as directed pt will be discharged home Re-evaluation Time: 09:35 Reassessment Condition: Improving,but remains with symptoms - Lab Interpretations Lab Results: Lab Results 05/09/17 08:38: POC Glucose (mg/dL) 77 I have reviewed the lab results: Yes Interpretation: All labs normal - RAD Interpretation Narrative RAD Interpretations (Text): 05/09/17 09:35 L/S: prelim - no acute fx/subluxation noted Radiology Orders: 05/09/17 08:16 LS SPINE AP/LAT [RAD] Stat Oncology Physician: ED Physician - Medication Orders Current Medication Orders: Discontinued Medications Diazepam (Valium) 2 mg PO ONCE ONE PRN Reason: Protocol Stop: 05/09/17 08:16 Last Admin: 05/09/17 09:09 Dose: 2 mg Ketorolac Tromethamine (Toradol) 30 mg IM STAT STA Stop: 05/09/17 08:15 Last Admin: 05/09/17 09:10 Dose: 30 mg MAR Pain Assessment Document 05/09/17 09:10 [facility] (Rec: 05/09/17 09:10 [facility] [id number]) Pain Reassessment Is this a pain reassessment? No Sleep Is patient sleeping during reassessment? No Presence of Pain Presence of Pain Yes Pain Scale Used Pain Scale Used Numeric Location Left, Right or Bilateral Bilateral Pain Location Body Site Back Description Description Constant Intensity of Pain at present 6 Alleviating Factors/Management Medication Techniques Alleviating Factors Medication IM Administration Charges Document 05/09/17 09:10 [facility] (Rec: 05/09/17 09:10 [facility] [id number]) Charges for Administration # of IM Administrations 1 Oxycodone/Acetaminophen (Percocet 5/325 Mg Tab) 1 tab PO STAT STA Stop: 05/09/17 08:16 Last Admin: 05/09/17 09:09 Dose: 1 tab MAR Pain Assessment Document 05/09/17 09:09 LM (Rec: 05/09/17 09:09 [facility] [id number]) Pain Reassessment Is this a pain reassessment? No Sleep Is patient sleeping during reassessment? No Presence of Pain Presence of Pain Yes Pain Scale Used Pain Scale Used Numeric Location Left, Right or Bilateral Bilateral Pain Location Body Site Back Description Description Constant Intensity of Pain at present 6 Disposition/Present on Arrival - Present on Arrival Any Indicators Present on Arrival: No History of DVT/PE: No History of Uncontrolled Diabetes: No Urinary Catheter: No History of Decub. Ulcer: No History Surgical Site Infection Following: None - Disposition Have Diagnosis and Disposition been Completed?: Yes Diagnosis: Lower back pain, Musculoskeletal back pain Disposition: HOME/ ROUTINE Disposition Time: 09:36 Patient Plan: Discharge Patient Problems: Current Active Problems Problem Status Onset Lower back pain Acute Musculoskeletal back pain Acute Condition: STABLE Discharge Instructions (ExitCare): Low Back Pain in Adults, Low Back Pain (DC) Print Language: NEPALI Additional Instructions: Make sure to see your doctor in 1-2 days AVOID heavy lifting Always lift with your legs DRINK PLENTY OF FLUIDS take your medications as prescribed RETURN TO ED IF worse pain, cant breath, persistent vomiting, high fever >101- 102 for hours, altered behavior, unable to urinate, persistent leg numbness/ tingling, heavy/persistent bleeding, passing out, chest pain, or other medical emergencies Prescriptions: Diazepam [Valium] 2 mg PO TID PRN #12 tablet PRN Reason: Muscle Spasm Ibuprofen [Motrin] 400 mg PO QID PRN #30 tab PRN Reason: Pain, Mild (1-3) oxyCODONE/Acetaminophen [Percocet 5/325 mg Tab] 1 tab PO TID PRN #15 tab PRN Reason: Pain, Moderate (4-7) Referrals: Aaron Dee, [Primary Care Provider] - Follow up with primary [facility] [place] [Outside] - Follow up with primary Forms: [employer] (Thai), WORK NOTE
[2017-05-09] MEDS: Oxycodone/Acetaminophen 5/325 mg Tab PO STA (09:09)
[2017-05-09 09:54] VITALS: BP 126/72; PULSE 71; RESP 18; TEMP 98.4; O2SAT 99
--- NOTE | 2017-05-09 10:22 | RAD ---
PROCEDURE: Radiographs of the Lumbar Spine. HISTORY: atrumatic lower back pain COMPARISON: No prior. FINDINGS: BONES: Normal alignment. No listhesis. No fracture. DISC SPACES: Unremarkable. OTHER FINDINGS: None. IMPRESSION: Unremarkable radiographs of the lumbar spine.
== END 2017-05-09 09:57 | disposition home or self-care (01) ==
LOC: ED 07:57
DX: M54.5 Low back pain (principal)
CPT/HCPCS: 72100; 82948; 96372; 99283; J1885

== ENCOUNTER 2017-11-06 06:25 | Emergency (ER) | payer MEDICAID, OTHER ==
[2017-11-06 06:26] VITALS: BMI 36.9
[2017-11-06 06:38] VITALS: PULSE 96
--- NOTE | 2017-11-06 07:24 | ED PDOC ---
Arrival/HPI <Vignesh Rios - Last Filed: 11/06/17 08:21> - General Historian: Patient - History of Present Illness Time/Duration: < week Symptom Onset: Sudden Symptom Course: Worsening Quality: Burning, Other (itching) <Ralph Chavez - Last Filed: 11/06/17 11:19> - General Chief Complaint: Abnormal Skin Integrity Time Seen by Provider: 11/06/17 07:11 - History of Present Illness Narrative History of Present Illness (Text): 11/06/17 07:24 22 year old male, past medical history of asthma and eczema, presents to the emergency department with rash on hands and feet for 2 days. Patient recently had a cold for which he took dayquil and nightquil. He started noticing raised, erythematous, pruritic skin lesions on his hands and feet that have slowly spread centrally. There is no associated drainage or bleeding of lesions. He took a benadryl twice yesterday that alleviated the pruritus. He has never had this before. He denies any new medications, detergents, or foods. Denies any chest pain, cough, shortness of breath, wheezing. Denies fever, chills, nausea, vomiting, palpitations, abdominal pain, or urinary symptoms. No current PMD. (Ralph Chavez) Past Medical History - Provider Review Nursing Documentation Reviewed: Yes - Past History Past History: No Previous - Infectious Disease Hx of Infectious Diseases: None - Tetanus Immunization Tetanus Immunization: Unknown - Cardiac Hx Cardiac Disorders: No - Pulmonary Hx Respiratory Disorders: Yes Hx Asthma: Yes - Neurological Hx Neurological Disorder: No - HEENT Hx HEENT Disorder: No - Renal Hx Renal Disorder: No - Endocrine/Metabolic Hx Endocrine Disorders: No - Hematological/Oncological Hx Blood Disorders: No - Integumentary Hx Dermatological Disorder: No - Musculoskeletal/Rheumatological Hx Musculoskeletal Disorders: No - Gastrointestinal Hx Gastrointestinal Disorders: No - Genitourinary/Gynecological Hx Genitourinary Disorders: No - Psychiatric Hx Psychophysiologic Disorder: No Hx Substance Use: No - Past Surgical History Past Surgical History: No Previous - Anesthesia Hx Anesthesia: No - Suicidal Assessment Feels Threatened In Home Enviroment: No <Ralph Chavez - Last Filed: 11/06/17 11:19> Family/Social History - Physician Review Nursing Documentation Reviewed: Yes Family/Social History: No Known Family HX Smoking Status: Never Smoked Hx Alcohol Use: No Hx Substance Use: No Hx Substance Use Treatment: No <Ralph Chavez - Last Filed: 11/06/17 11:19> Allergies/Home Meds <Vignesh Rios - Last Filed: 11/06/17 08:21> <Ralph Chavez - Last Filed: 11/06/17 11:19> Allergies/Adverse Reactions: Allergies No Known Allergies Allergy (Verified 11/06/17 06:34) Review of Systems - Physician Review All systems were reviewed & negative as marked: Yes - Review of Systems Constitutional: absent: Fevers Eyes: absent: Vision Changes ENT: absent: Hearing Changes Respiratory: absent: SOB, Cough, Wheezing Cardiovascular: absent: Chest Pain, Palpitations Gastrointestinal: absent: Abdominal Pain, Nausea, Vomiting Genitourinary Male: absent: Dysuria, Hematuria Skin: Rash, Pruritis, Skin Lesions Neurological: absent: Headache, Dizziness Endocrine: absent: Diaphoresis <Ralph Chavez - Last Filed: 11/06/17 11:19> Physical Exam Vital Signs Reviewed: Yes Temperature: Afebrile Blood Pressure: Normal Pulse: Tachycardic Respiratory Rate: Normal Appearance: Positive for: Well-Appearing, Non-Toxic, Comfortable Pain Distress: None Mental Status: Positive for: Alert and Oriented X 3 - Systems Exam Head: Present: Atraumatic, Normocephalic Pupils: Present: PERRL Extroacular Muscles: Present: EOMI Conjunctiva: Present: Normal Ears: Present: Normal Mouth: Present: Dry, Other (Palatal petichiae) Pharnyx: Present: ERYTHEMA. No: EXUDATE, Uvular Deviation, Muffled/Hoarse Voice , Soft Palate/Uvular Edema Nose (External): Present: Atraumatic Respiratory/Chest: Present: Clear to Auscultation, Good Air Exchange. No: Respiratory Distress, Accessory Muscle Use Cardiovascular: Present: Regular Rate and Rhythm, Normal S1, S2. No: Murmurs Abdomen: No: Tenderness, Distention, Peritoneal Signs Upper Extremity: Present: NORMAL PULSES Lower Extremity: Present: NORMAL PULSES Neurological: Present: CN II-XII Intact, Speech Normal Skin: Present: Other (raised erythematous papules with no active drainage or bleeding in the hands, feet and chest sparing the palms and soles) Psychiatric: Present: Alert, Oriented x 3, Normal Insight, Normal Concentration <Ralph Chavez - Last Filed: 11/06/17 11:19> Vital Signs Temp Pulse Resp BP Pulse Ox 11/06/17 06:35 99.3 F 96 H 18 137/85 96 11/06/17 06:26 99.3 F 96 H 18 137/85 96 Medical Decision Making <Vignesh Rios - Last Filed: 11/06/17 08:21> <Ralph Chavez - Last Filed: 11/06/17 11:19> ED Course and Treatment: 11/06/17 08:21 22 year old male presents to the Emergency department complaining of rash on hands and feet since 2 days. In agreement with resident note, which includes further HPI details. Patient was seen and evaluated with resident, came up with plan and treatment together. (Vignesh Rios) 11/06/17 08:18 22M, PMH of asthma and eczema, presents with new onset, pruritic erythematous rash in his hands and feet, spreading centrally. Palatal petechiae noted on physical exam. Unknown inciting factor/trigger at this time. CBC CMP Rapid Strep Rapid HIV 11/06/17 11:04 CBC, CMP within normal limits. Rapid Strep and HIV negative. Patient should follow up with PMD within the next 3-5 days. Patient should follow up with [facility] within the next 3-5 days. Nystatin swish and swallow provided. Please as directed. For itchiness, please used non-drowsy antihistamine. If symptoms worsen, please return to the ED. Patient verbalized understanding and agreement of treatment plan. Case reviewed and discussed with attending provider. (Ralph Chavez) - Lab Interpretations Lab Results: 11/06/17 08:20 11/06/17 08:20 Lab Results 11/06/17 09:00: HIV-1 Ab Rapid Screen Non reactive 11/06/17 08:20: Sodium 140, Potassium 3.5 L, Chloride 106, Carbon Dioxide 23, Anion Gap 15, BUN 7, Creatinine 0.7 L, Est GFR ( Amer) > 60, Est GFR (Non -Af Amer) > 60, Random Glucose 122 H, Calcium 9.1, Total Bilirubin 0.7, AST 25, ALT 37, Alkaline Phosphatase 85, Total Protein 7.2, Albumin 4.2, Globulin 3.0, Albumin/Globulin Ratio 1.4 11/06/17 08:20: PT 13.8 H, INR 1.20, APTT 27.3 11/06/17 08:20: Grp A Beta Strep Ag Negative 11/06/17 08:20: WBC 7.2, RBC 5.02, Hgb 14.7, Hct 41.8 L, MCV 83.3, MCH 29.3, MCHC 35.2, RDW 13.4, Plt Count 183, MPV 10.1, Gran % 71.2 H, Lymph % (Auto) 19.3 L, [place] % (Auto) 9.1 H, Eos % (Auto) 0.3 L, Baso % (Auto) 0.1, Gran # 5.14 , Lymph # (Auto) 1.4, [place] # (Auto) 0.7 H, Eos # (Auto) 0.0, Baso # (Auto) 0.01 - PA / ELECTRIC FORK OPERATOR / Resident Statement MD/DO has reviewed & agrees with the documentation as recorded. MD/DO has examined the patient and agrees with the treatment plan. - Scribe Statement The provider has reviewed the documentation as recorded by the Scribe <Vignesh Rios - Last Filed: 11/06/17 08:21> <Ralph Chavez - Last Filed: 11/06/17 11:19> - Scribe Statement Carlito Bah. All medical record entries made by the Scribe were at my direction and personally dictated by me. I have reviewed the chart and agree that the record accurately reflects my personal performance of the history, physical exam, medical decision making, and the department course for this patient. I have also personally directed, reviewed, and agree with the discharge instructions and disposition. (Vignesh Rios) Disposition/Present on Arrival <Vignesh Rios - Last Filed: 11/06/17 08:21> - Present on Arrival Any Indicators Present on Arrival: No History of DVT/PE: No History of Uncontrolled Diabetes: No Urinary Catheter: No History of Decub. Ulcer: No History Surgical Site Infection Following: None - Disposition Have Diagnosis and Disposition been Completed?: Yes Disposition Time: 11:09 Patient Plan: Discharge <Ralph Chavez - Last Filed: 11/06/17 11:19> - Disposition Diagnosis: Atopic dermatitis, Eczema Disposition: HOME/ ROUTINE Patient Problems: Current Active Problems Problem Status Onset Atopic dermatitis Acute Eczema Acute Condition: GOOD Discharge Instructions (ExitCare): Eczema (Atopic Dermatitis) (DC) Additional Instructions: Patient should follow up with PMD within the next 3-5 days. Patient should follow up with [facility] within the next 3-5 days. Nystatin swish and swallow provided. Please use as directed. For itchiness, please use non-drowsy antihistamine. If symptoms worsen, please return to the ED. Prescriptions: Nystatin [Nystatin Oral Susp] 1 bottle PO QID 7 Days #1 udc Referrals: Kenna Marquez MD [Staff Provider] - Follow up with primary Forms: [employer] (Iranian)
[2017-11-06 08:31] LABS: BASO # 0.01 K/mm3 (0.0-2.0); BASO % 0.1 % (0.0-3.0); EOS % 0.3 % (1.5-5.0); GRAN # 5.14 (1.4-6.5); GRAN % 71.2 % (50.0-68.0); HEMOGLOBIN 14.7 g/dL (14.0-18.0); LYMPH # 1.4 (1.2-3.4); LYMPH % 19.3 % (22.0-35.0); MEAN CELL VOLUME 83.3 fl (80.0-105.0); MEAN CORPUSCULAR HEMOGLOBIN 29.3 pg (25.0-35.0); MEAN CORPUSCULAR HGB CONC 35.2 g/dl (31.0-37.0); MEAN PLATELET VOLUME 10.1 fl (7.0-11.0); MONO # 0.7 (0.1-0.6); MONO % 9.1 % (1.0-6.0); RBC 5.02 10^6/uL (3.5-6.1); RED CELL DISTRIBUTION WIDTH 13.4 % (11.5-14.5); WHITE BLOOD COUNT 7.2 10^3/ul (4.5-11.0)
[2017-11-06 08:39] LABS: INR 1.2; PARTIAL THROMBOPLASTIN TIME 27.3 Seconds (25.1-36.5); PROTHROMBIN TIME 13.8 SECONDS (9.4-12.5)
[2017-11-06 08:41] LABS: ALB/GLOB RATIO 1.4 (1.1-1.8); ALBUMIN 4.2 g/dL (3.0-4.8); ALT/SGPT 37 U/L (7-56); AST/SGOT 25 U/L (17-59); BLOOD UREA NITROGEN 7 mg/dL (7-21); CALCIUM 9.1 mg/dL (8.4-10.5); GFR NON-AFRICAN AMERICAN > 60
[2017-11-06 11:24] VITALS: BP 138/84; RESP 20; TEMP 98.2; O2SAT 97
== END 2017-11-06 11:25 | disposition home or self-care (01) ==
LOC: ED 06:25
DX: L20.9 Atopic dermatitis, unspecified (principal)

== ENCOUNTER 2018-01-03 08:55 | Emergency (ER) | payer OTHER ==
[2018-01-03 08:55] VITALS: BMI 36.9
[2018-01-03 09:19] VITALS: TEMP 97.9
--- NOTE | 2018-01-03 09:54 | ED PDOC ---
Arrival/HPI - General Chief Complaint: Dental Pain Historian: Patient - History of Present Illness Narrative History of Present Illness (Text): 01/03/18 09:30 22 year old male, with no significant past medical history, presents to the Emergency department complaining of left sided facial swelling since yesterday. Patient states chronic left dental discomfort secondary to dental fracture long time ago, which he was asked to remove. Patient denies compliance with the suggestion and now presents with worsening swelling to the area. Patient worries of a possible infection prompting him to present to the ED for medical evaluation. Patient denies any recent trauma or injury to the site. Patient denies any other associated medical complaints. Patient denies any fevers, chills, headache, dizziness, chest pain, shortness of breath, cough, abdominal pain, nausea, vomiting, diarrhea, back pain, neck pain, or any other complaints. Dentist: NONE Time/Duration: 24 hours Symptom Onset: Gradual Symptom Course: Worsening Quality: Aching Activities at Onset: Light Context: Home Past Medical History - Provider Review Nursing Documentation Reviewed: Yes - Past History Past History: No Previous - Infectious Disease Hx of Infectious Diseases: None - Tetanus Immunization Tetanus Immunization: Unknown - Cardiac Hx Cardiac Disorders: No - Pulmonary Hx Respiratory Disorders: Yes Hx Asthma: Yes - Neurological Hx Neurological Disorder: No - HEENT Hx HEENT Disorder: Yes Other/Comment: DENTAL INFECTION - Renal Hx Renal Disorder: No - Endocrine/Metabolic Hx Endocrine Disorders: No - Hematological/Oncological Hx Blood Disorders: No - Integumentary Hx Dermatological Disorder: No - Musculoskeletal/Rheumatological Hx Musculoskeletal Disorders: No - Gastrointestinal Hx Gastrointestinal Disorders: No - Genitourinary/Gynecological Hx Genitourinary Disorders: No - Psychiatric Hx Psychophysiologic Disorder: No Hx Substance Use: No - Past Surgical History Past Surgical History: No Previous - Anesthesia Hx Anesthesia: No - Suicidal Assessment Feels Threatened In Home Enviroment: No Family/Social History - Physician Review Nursing Documentation Reviewed: Yes Family/Social History: Unknown Family HX Smoking Status: Never Smoked Hx Alcohol Use: No Hx Substance Use: No Hx Substance Use Treatment: No Allergies/Home Meds Allergies/Adverse Reactions: Allergies No Known Allergies Allergy (Verified 01/03/18 09:14) Review of Systems - Physician Review All systems were reviewed & negative as marked: Yes - Review of Systems Constitutional: absent: Fevers ENT: Other (left sided dental pain) Respiratory: absent: SOB Cardiovascular: absent: Chest Pain, DAVISON Gastrointestinal: absent: Abdominal Pain, Diarrhea, Nausea, Vomiting Musculoskeletal: absent: Back Pain, Neck Pain Skin: absent: Rash Neurological: absent: Headache, Dizziness Physical Exam Vital Signs Reviewed: Yes Vital Signs Temp Pulse Resp BP Pulse Ox 01/03/18 09:14 97.9 F 92 H 16 139/83 97 Temperature: Afebrile Blood Pressure: Normal Pulse: Regular Respiratory Rate: Normal Appearance: Positive for: Well-Appearing, Non-Toxic, Comfortable Pain Distress: None Mental Status: Positive for: Alert and Oriented X 3 - Systems Exam Head: Present: Atraumatic, Normocephalic Pupils: Present: PERRL Extroacular Muscles: Present: EOMI Conjunctiva: Present: Normal Mouth: Present: Moist Mucous Membranes, Other (Martinez class 3 fracture noted to tooth#12) Respiratory/Chest: Present: Clear to Auscultation, Good Air Exchange. No: Respiratory Distress, Accessory Muscle Use Cardiovascular: Present: Regular Rate and Rhythm, Normal S1, S2. No: Murmurs Abdomen: No: Tenderness, Distention, Peritoneal Signs Upper Extremity: Present: Normal Inspection. No: Cyanosis, Edema Lower Extremity: Present: Normal Inspection. No: Edema Neurological: Present: GCS=15, CN II-XII Intact, Speech Normal Skin: Present: Warm, Dry, Normal Color. No: Rashes Psychiatric: Present: Alert, Oriented x 3, Normal Insight, Normal Concentration Medical Decision Making ED Course and Treatment: 01/03/18 09:30 Impression: 22 year old male presents to the Emergency department complaining of left sided dental pain. Plan: -- Antibiotics -- Referral to a dentist -- Reassess and disposition Prior Visits: Notes and results from previous visits were reviewed. Progress Notes: - Scribe Statement The provider has reviewed the documentation as recorded by the Scribe Carlito Bah. All medical record entries made by the Scribjesus were at my direction and personally dictated by me. I have reviewed the chart and agree that the record accurately reflects my personal performance of the history, physical exam, medical decision making, and the department course for this patient. I have also personally directed, reviewed, and agree with the discharge instructions and disposition. Disposition/Present on Arrival - Present on Arrival Any Indicators Present on Arrival: No History of DVT/PE: No History of Uncontrolled Diabetes: No Urinary Catheter: No History of Decub. Ulcer: No History Surgical Site Infection Following: None - Disposition Have Diagnosis and Disposition been Completed?: Yes Diagnosis: Dental caries Disposition: HOME/ ROUTINE Disposition Time: 09:30 Condition: GOOD Discharge Instructions (ExitCare): Tooth Decay, Adult (DC) Additional Instructions: FELECIA HOPKINS, thank you for letting us take care of you today. The emergency medical care you received today was directed at your acute symptoms. If you were prescribed any medication, please fill it and take as directed. It may take several days for your symptoms to resolve. Return to the Emergency Department if your symptoms worsen, do not improve, or if you have any other problems. Please contact your doctor or call one of the physicians/clinics you have been referred to that are listed on the Patient Visit Information form that is included in your discharge packet. Bring any paperwork you were given at discharge with you along with any medications you are taking to your follow up visit. Our treatment cannot replace ongoing medical care by a primary care provider outside of the emergency department. Thank you for allowing the [facility] to be part of your care today. Follow up with a dentist on the list in 1-2 days for re-evaluation and further management. Prescriptions: Amoxicillin/Clavulanate [Augmentin 875 MG-125 MG] 1 tab PO BID #20 tab Ibuprofen [Motrin] 600 mg PO Q6 PRN #20 tab PRN Reason: Pain, Moderate (4-7) Referrals: Jeromy Ledezma DDS [Doctor Dental Surgery] - Follow up with primary Shameka Franklin DMD [Doctor Dental Medicine] - Follow up with primary Navin Beckham DMD [Doctor Dental Medicine] - Follow up with primary Bob Angela DDS [Doctor Dental Surgery] - Follow up with primary Forms: [employer] (Iranian)
[2018-01-03 10:03] VITALS: BP 128/80; PULSE 72; RESP 18; O2SAT 98
== END 2018-01-03 10:03 | disposition home or self-care (01) ==
LOC: ED 08:55
DX: K02.9 Dental caries, unspecified (principal)

== ENCOUNTER 2018-01-12 18:14 | Emergency (ER) | payer OTHER ==
[2018-01-12 18:40] VITALS: BMI 41.7
--- NOTE | 2018-01-12 19:49 | ED PDOC ---
Arrival/HPI <Santiago Gómez - Last Filed: 01/12/18 20:02> - General Historian: Patient - History of Present Illness Narrative History of Present Illness (Text): 01/12/18 19:20 A 22 year old male, whose past medical history includes HTN (has not taken medications in 5 yrs due to blood pressure not being high), asthma, presents to the emergency department complaining of numbness to bilateral face/ahnds/feet(radiating up to knees) starting this morning. Patient reports he has difficulty ambulating due to numbness. Describes numbness as "pins and needles" sensation. Patient denies any fever, headache, dizziness, chest pain, shortness of breath, nausea, vomiting, abdominal pain, or any other complaints at this time. Also, denies any recent travel or any sick contacts. Mentions taking antibiotics last week for dental infection. PMD: Dr. Strickland Time/Duration: Other (startig this morning.) <Xiao Thomas PA-C - Last Filed: 01/12/18 21:20> - General Chief Complaint: Weakness/Neurological Deficit Time Seen by Provider: 01/12/18 18:33 Past Medical History - Provider Review Nursing Documentation Reviewed: Yes - Past History Past History: No Previous - Infectious Disease Hx of Infectious Diseases: None - Tetanus Immunization Tetanus Immunization: Unknown - Cardiac Hx Cardiac Disorders: No Hx Hypertension: Yes (not taking meds. for a while) - Pulmonary Hx Respiratory Disorders: Yes Hx Asthma: Yes - Neurological Hx Neurological Disorder: No - HEENT Hx HEENT Disorder: Yes - Renal Hx Renal Disorder: No - Endocrine/Metabolic Hx Endocrine Disorders: No - Hematological/Oncological Hx Blood Disorders: No - Integumentary Hx Dermatological Disorder: No - Musculoskeletal/Rheumatological Hx Musculoskeletal Disorders: No - Gastrointestinal Hx Gastrointestinal Disorders: No - Genitourinary/Gynecological Hx Genitourinary Disorders: No - Psychiatric Hx Psychophysiologic Disorder: No Hx Substance Use: No - Past Surgical History Past Surgical History: No Previous - Anesthesia Hx Anesthesia: No Hx Anesthesia Reactions: No Hx Malignant Hyperthermia: No - Suicidal Assessment Feels Threatened In Home Enviroment: No <Xiao Thomas PA-C - Last Filed: 01/12/18 21:20> Family/Social History - Physician Review Nursing Documentation Reviewed: Yes Family/Social History: No Known Family HX Smoking Status: Never Smoked Hx Alcohol Use: No Hx Substance Use: No Hx Substance Use Treatment: No <Xiao Thomas PA-C - Last Filed: 01/12/18 21:20> Allergies/Home Meds <Santiago Gómez - Last Filed: 01/12/18 20:02> <Xiao Thomas PA-C - Last Filed: 01/12/18 21:20> Allergies/Adverse Reactions: Allergies No Known Allergies Allergy (Verified 01/03/18 09:14) Review of Systems - Physician Review All systems were reviewed & negative as marked: Yes - Review of Systems Constitutional: absent: Fevers Respiratory: absent: SOB Cardiovascular: absent: Chest Pain Gastrointestinal: absent: Abdominal Pain, Nausea, Vomiting Neurological: Other (numbness to bilateral face/hands/feet(radiating up to knees)). absent: Headache, Dizziness <Xiao Thomas PA-C - Last Filed: 01/12/18 21:20> Physical Exam Vital Signs Temp Pulse Resp BP Pulse Ox 01/12/18 18:14 98.7 F 109 H 18 149/81 97 <Santiago Gómez - Last Filed: 01/12/18 20:02> Vital Signs Reviewed: Yes Vital Signs Temp Pulse Resp BP Pulse Ox 01/12/18 18:14 98.7 F 109 H 18 149/81 97 Temperature: Afebrile Blood Pressure: Normal Pulse: Regular Respiratory Rate: Normal Appearance: Positive for: Well-Appearing, Non-Toxic, Comfortable Pain Distress: None Mental Status: Positive for: Alert and Oriented X 3 - Systems Exam Head: Present: Atraumatic, Normocephalic Pupils: Present: PERRL Extroacular Muscles: Present: EOMI Conjunctiva: Present: Normal Mouth: Present: Moist Mucous Membranes Neck: Present: Normal Range of Motion Respiratory/Chest: Present: Clear to Auscultation, Good Air Exchange. No: Respiratory Distress, Accessory Muscle Use Cardiovascular: Present: Regular Rate and Rhythm, Normal S1, S2. No: Murmurs Abdomen: No: Tenderness, Distention, Peritoneal Signs Back: Present: Normal Inspection Upper Extremity: Present: Normal Inspection. No: Cyanosis, Edema Lower Extremity: Present: Normal Inspection. No: Edema Neurological: Present: GCS=15, CN II-XII Intact, Speech Normal, Motor Func Grossly Intact, Normal Sensory Function, Gait Normal Skin: Present: Warm, Dry, Normal Color. No: Rashes Psychiatric: Present: Alert, Oriented x 3, Normal Insight, Normal Concentration <Xiao Thomas PA-C - Last Filed: 01/12/18 21:20> Medical Decision Making - Lab Interpretations Lab Results: 01/12/18 19:40 Lab Results 01/12/18 19:40: WBC 8.0, RBC 5.00, Hgb 14.6, Hct 42.3, MCV 84.6, MCH 29.2, MCHC 34.5, RDW 13.3, Plt Count 253, MPV 10.1, Gran % 59.9, Lymph % (Auto) 35.6 H, H[place] % (Auto) 3.7, Eos % (Auto) 0.7 L, Baso % (Auto) 0.1, Gran # 4.81, Lymph # (Auto) 2.9, H[place] # (Auto) 0.3, Eos # (Auto) 0.1, Baso # (Auto) 0.01 - RAD Interpretation Radiology Orders: 01/12/18 19:07 HEAD W/O CONTRAST [CT] Stat <Santiago Gómez - Last Filed: 01/12/18 20:02> ED Course and Treatment: 01/12/18 19:29 Impression: 22 year old male with numbness to bilateral face/hands/feet. No acute findings on physical exam. Plan: -- Head CT -- Urinalysis -- Labs -- Reassess and disposition Prior Visits: Notes and results from previous visits were reviewed. Patient was last seen here in the emergency department on 01/03/2018 for facial swelling. Patient was discharged home. Progress Notes: 01/12/2018 20:[address] IMPRESSION: No acute intracranial abnormality. Dictator: Mj Cotter MD On re-evaluation, patient reports improvement of symptoms, denies any facial shaun op or extremity weakness. On exam, patient remains AAOx3, in no acute distress. Repeat neuro exam shows no focal findings, he is able to smile evenly with no facial droop, FROM with normal strength and sensation to all 4 extremities, gait is steady. Lab and CT results d/w the patient. Based on history, exam and diagnostic results, plan will be for outpatient follow up. Patient instructed to follow-up with referral provided in 1-2 days without fail. Return to the emergency room at any time for any new or worsening symptoms. Patient states he fully agrees with and understands discharge instructions. States that he agrees with the plan and disposition. Verbalized and repeated discharge instructions and plan. I have given the patient opportunity to ask any additional questions. - RAD Interpretation Radiology Orders: 01/12/18 19:07 HEAD W/O CONTRAST [CT] Stat <Xiao Thomas PA-C - Last Filed: 01/12/18 21:20> - PA / TOOL AND DIE TECHNICIAN / Resident Statement LEONARDO has reviewed & agrees with the documentation as recorded. <Santiago Gómez - Last Filed: 01/12/18 20:02> - PA / TOOL AND DIE TECHNICIAN / Resident Statement / has reviewed & agrees with the documentation as recorded. - Scribe Statement The provider has reviewed the documentation as recorded by the Fco Chowdhury Provider Scribe Attestation: All medical record entries made by the Kiel[place]us were at my direction and personally dictated by me. I have reviewed the chart and agree that the record accurately reflects my personal performance of the history, physical exam, medical decision making, and the department course for this patient. I have also personally directed, reviewed, and agree with the discharge instructions and disposition. <Xiao Thomas PA-C - Last Filed: 01/12/18 21:20> Disposition/Present on Arrival <Santiago Gómez - Last Filed: 01/12/18 20:02> - Present on Arrival Any Indicators Present on Arrival: No History of DVT/PE: No History of Uncontrolled Diabetes: No Urinary Catheter: No History of Decub. Ulcer: No History Surgical Site Infection Following: None - Disposition Have Diagnosis and Disposition been Completed?: Yes Disposition Time: 21:00 Patient Plan: Discharge <Xiao Thomas PA-C - Last Filed: 01/12/18 21:20> - Disposition Diagnosis: Paresthesia Disposition: HOME/ ROUTINE Patient Problems: Current Active Problems Problem Status Onset Paresthesia Acute Condition: STABLE Additional Instructions: Thank you for letting us take care of you today. You were treated for paresthesia. The emergency medical care you received today was directed at your acute symptoms. It may take several days for your symptoms to resolve. Return to the Emergency Department if your symptoms worsen, do not improve, or if you have any other problems. Please call one of the physicians/clinics you have been referred to that are listed on the Patient Visit Information form that is included in your discharge packet. Bring any paperwork you were given at discharge with you along with any medications you are taking to your follow up visit. Our treatment cannot replace ongoing medical care by a primary care provider (PCP) outside of the emergency department. Thank you for allowing the [facility] team to be part of your care today. If you had a CT : A Radiologist will review the ED reading if any change in treatment is needed we will contact you. Referrals: Arlin Strickland MD [Primary Care Provider] - Follow up with primary Liam De Jesus MD [Staff Provider] - Follow up with primary Forms: [employer] ([place]), WORK NOTE
[2018-01-12 19:57] LABS: BASO # 0.01 K/mm3 (0.0-2.0); BASO % 0.1 % (0.0-3.0); EOS # 0.1 (0.0-0.7); EOS % 0.7 % (1.5-5.0); GRAN # 4.81 (1.4-6.5); GRAN % 59.9 % (50.0-68.0); HEMOGLOBIN 14.6 g/dL (14.0-18.0); LYMPH # 2.9 (1.2-3.4); LYMPH % 35.6 % (22.0-35.0); MEAN CELL VOLUME 84.6 fl (80.0-105.0); MEAN CORPUSCULAR HEMOGLOBIN 29.2 pg (25.0-35.0); MEAN CORPUSCULAR HGB CONC 34.5 g/dl (31.0-37.0); MEAN PLATELET VOLUME 10.1 fl (7.0-11.0); MONO # 0.3 (0.1-0.6); MONO % 3.7 % (1.0-6.0); RED CELL DISTRIBUTION WIDTH 13.3 % (11.5-14.5)
[2018-01-12 20:03] LABS: ALB/GLOB RATIO 1.3 (1.1-1.8); ALBUMIN 4.1 g/dL (3.0-4.8); ALT/SGPT 38 U/L (7-56); AST/SGOT 22 U/L (17-59); BLOOD UREA NITROGEN 7 mg/dL (7-21); CALCIUM 8.8 mg/dL (8.4-10.5); GFR NON-AFRICAN AMERICAN > 60
[2018-01-12 21:25] VITALS: BP 126/72; PULSE 98; RESP 17; O2SAT 98
[2018-01-12 21:36] VITALS: TEMP 98.2
--- NOTE | 2018-01-13 08:55 | CT ---
Date of service: 01/12/2018 PROCEDURE: CT HEAD WITHOUT CONTRAST. HISTORY: numbness to face, hands and feet COMPARISON: Noncontrast head CT performed 02/06/13 TECHNIQUE: Axial computed tomography images were obtained through the head/brain without intravenous contrast. Radiation dose: Total exam DLP = 985.28 mGy-cm. This CT exam was performed using one or more of the following dose reduction techniques: Automated exposure control, adjustment of the mA and/or kV according to patient size, and/or use of iterative reconstruction technique. FINDINGS: HEMORRHAGE: No intracranial hemorrhage. BRAIN: No mass effect or edema. No atrophy or chronic microvascular ischemic changes. VENTRICLES: No hydrocephalus. CALVARIUM: Unremarkable. PARANASAL SINUSES: Small polyp versus mucosal cyst, left maxillary sinus. The remainder the visualized paranasal sinuses appear unremarkable. MASTOID AIR CELLS: Unremarkable as visualized. No inflammatory changes. OTHER FINDINGS: None. IMPRESSION: No acute intracranial pathology identified. Preliminary impression was provided by [employer].
== END 2018-01-12 21:35 | disposition home or self-care (01) ==
LOC: ED 18:14
DX: R20.2 Paresthesia of skin (principal); I10 Essential (primary) hypertension